=== PATIENT | female | born 1970 | race African-American/Black ===

== ENCOUNTER 2017-01-07 16:42 | Emergency (ER) | payer OTHER ==
[2017-01-07 16:58] VITALS: BMI 31.8
[2017-01-07] MEDS ORDERED: morphine CARPU-JECT 4 MG/1 ML DISP.SYRIN IVPUSH ONE (18:02)
[2017-01-07] MEDS ORDERED: SODIUM CHLORIDE 1,000 ML IV STA (18:02)
--- NOTE | 2017-01-07 18:02 | PDOC ---
[id number] a 46 year old female with no significant medical hx who is presenting to the ED with epigastric pain since last night. The patient reports noticing a hard bump sticking out of her upper abdomen with accompanying pain some time last night. The patient denies any nausea or vomiting. She does not have a history of hernias. Surgical Hx: Cholecystectomy <Lucille Lew - Last Filed: 01/07/17 18:03> <Kathy Torres - Last Filed: 01/08/17 23:39> - General Chief Complaint: Pain Stated Complaint: LUMP ON STOMACH/PAIN Time Seen by Provider: 01/07/17 17:46 Past History <Lucille Lew - Last Filed: 01/07/17 18:03> - Surgical History Abdominal Surgery: Yes (gallstones removed) Cholecystectomy: Yes - Psycho/Social/Smoking Cessation Hx Anxiety: No Suicidal Ideation: No Smoking Status: No Smoking History: Never smoked Years of Tobacco Use: 0 Number of Cigarettes Smoked Daily: 0 Cigars Per Day: 0 Information on smoking cessation initiated: No <Kathy Torres - Last Filed: 01/08/17 23:39> - Past Medical History Allergies/Adverse Reactions: Allergies Allergy/AdvReac Type Severity Reaction Status Date / Time No Known Allergies Allergy Verified 01/07/17 16:58 Home Medications: Ambulatory Orders Ferrous Sulfate 325 mg PO DAILY 01/07/17 Ibuprofen 800 mg PO TID #30 tablet 01/07/17 Oxycodone HCl/Acetaminophen [Percocet 5-325 mg Tablet] 1 - 2 tab PO Q6H #20 tablet MDD 4 01/07/17 Review of Systems - Review of Systems Comments:: 01/07/17 18:03 GENERAL/CONSTITUTIONAL: No fever or chills. No weakness. HEAD, EYES, EARS, NOSE AND THROAT: No change in vision. No ear pain or discharge. No sore throat. CARDIOVASCULAR: No chest pain or shortness of breath. RESPIRATORY: No cough, wheezing, or hemoptysis. GASTROINTESTINAL: Epigastric pain, bump located to upper abdomen. No nausea, vomiting, diarrhea or constipation. GENITOURINARY: No dysuria, frequency, or change in urination. MUSCULOSKELETAL: No joint or muscle swelling or pain. No neck or back pain. SKIN: No rash NEUROLOGIC: No headache, vertigo, loss of consciousness, or change in strength/ sensation. <Lucille Lew - Last Filed: 01/07/17 18:03> *Physical Exam - Vital Signs Last Vital Signs Temp Pulse Resp BP Pulse Ox 98.1 F 78 18 129/77 99 01/07/17 16:55 01/07/17 16:55 01/07/17 16:55 01/07/17 16:55 01/07/17 16:55 <Lucille Lew - Last Filed: 01/07/17 18:03> - Vital Signs Last Vital Signs Temp Pulse Resp BP Pulse Ox 98.1 F 78 18 129/77 99 01/07/17 16:55 01/07/17 16:55 01/07/17 16:55 01/07/17 16:55 01/07/17 16:55 - Physical Exam Comments: GENERAL: Awake, alert, and fully oriented, in no acute distress HEAD: No signs of trauma EYES: PERRLA, EOMI, sclera anicteric, conjunctiva clear ENT: Auricles normal inspection, hearing grossly normal, nares patent, oropharynx clear without exudates. Moist mucosa NECK: Normal ROM, supple, no lymphadenopathy, JVD, or masses LUNGS: Breath sounds equal, clear to auscultation bilaterally. No wheezes, and no crackles HEART: Regular rate and rhythm, normal S1 and S2, no murmurs, rubs or gallops ABDOMEN: Soft, +firm area of tenderness to the epigastrium, with mass-like protrusion, normoactive bowel sounds. No rebound. No masses EXTREMITIES: Normal range of motion, no edema. No clubbing or cyanosis. No cords, erythema, or tenderness NEUROLOGICAL: Cranial nerves II through XII grossly intact. Normal speech, normal gait SKIN: Warm, Dry, normal turgor, no rashes or lesions noted. <Kathy Torres - Last Filed: 01/08/17 23:39> ED Treatment Course - LABORATORY CBC & Chemistry Diagram: 01/07/17 18:20 01/07/17 18:20 <Kathy Torres - Last Filed: 01/08/17 23:39> Medical Decision Making - Medical Decision Making 01/07/17 19:[address] Go- presented with suspected incarcerated hernia to epigastric area since last night. Did not attempt to reduce in ED due to duration of symptoms (risk of further harm to patient). Awaiting CT for further evaluation. <Kathy Torres - Last Filed: 01/08/17 23:39> *DC/Admit/Observation/Transfer - Attestations Scribe Attestion: 01/07/17 18:04 Documentation prepared by Lucille Lew, acting as emergency medical technician/driver for Kathy Torres MD. <Lucille Lew - Last Filed: 01/07/17 18:03> <Kathy Torres - Last Filed: 01/08/17 23:39> Diagnosis at time of Disposition: Hernia of abdominal wall - Discharge Dispostion Disposition: HOME Condition at time of disposition: Stable - Prescriptions Prescriptions: Ibuprofen 800 mg PO TID #30 tablet Oxycodone HCl/Acetaminophen [Percocet 5-325 mg Tablet] 1 - 2 tab PO Q6H #20 tablet MDD 4 - Referrals Referrals: Billy Layne MD [Staff Physician] - Danilo Maurer MD [Staff Physician] - - Patient Instructions Printed Discharge Instructions: DI for Ventral Hernia Additional Instructions: Please make appointment with one of the doctors referred to you for surgical follow up. Take medication as directed. Return if any problems
[2017-01-07] MEDS ORDERED: morphine CARPU-JECT 4 MG/1 ML DISP.SYRIN ONE (18:07)
[2017-01-07 18:36] LABS: BASOPHIL 0.6 % (0-2.0); EOSINOPHIL 3.4 % (0-4.5); MCH 21.5 pg (25.7-33.7); MCHC 29.7 g/dl (32.0-36.0); MEAN CELL VOLUME 72.5 fl (80-96); MEAN PLT VOLUME 8.8 fl (7.5-11.1); NEUTROPHILS 63.5 % (42.8-82.8); PLATELET COUNT 213 K/MM3 (134-434); RDW 24.5 % (11.6-15.6); WHITE BLOOD COUNT 5.3 K/mm3 (4.0-10.0)
[2017-01-07 18:53] LABS: INR 1.11 (0.82-1.09); PROTHROMBIN TIME (PATIENT) 12.2 SEC (9.98-11.88)
[2017-01-07 18:57] LABS: ALBUMIN 4.2 g/dl (3.4-5.0); ALK PHOS 68 U/L (45-117); ANION GAP 10 (8-16); BILIRUBIN,TOTAL 0.2 mg/dL (0.2-1.0); CALCIUM 8.8 mg/dL (8.5-10.1); CO2 24 mmol/L (21-32); CREATININE 0.8 mg/dL (0.55-1.02); GLUCOSE,RANDOM 76 mg/dL (74-106); SGOT/AST 13 U/L (15-37); SGPT/ALT 27 U/L (12-78); TOT PROT 7.6 g/dl (6.4-8.2)
[2017-01-07 20:04] LABS: ANISOCYTOSIS 3+; HYPOCHROMIA 2+; OVALOCYTES 2+; PLATELET ESTIMATE ADEQUATE (NORMAL)
--- NOTE | 2017-01-07 23:06 | PDOC ---
*Physical Exam - Vital Signs Last Vital Signs Temp Pulse Resp BP Pulse Ox 98.1 F 78 18 129/77 99 01/07/17 16:55 01/07/17 16:55 01/07/17 16:55 01/07/17 16:55 01/07/17 16:55 ED Treatment Course - LABORATORY CBC & Chemistry Diagram: 01/07/17 18:20 01/07/17 18:20 - ADDITIONAL ORDERS Additional order review: Laboratory Results 01/07/17 01/07/17 01/07/17 18:20 18:20 18:20 INR Sodium 139 Potassium 3.7 Chloride 105 Carbon Dioxide 24 Anion Gap 10 BUN 15 Creatinine 0.8 Creat Clearance w eGFR > 60 Random Glucose 76 Lactic Acid 0.634 Calcium 8.8 Total Bilirubin 0.2 AST 13 L ALT 27 Alkaline Phosphatase 68 Total Protein 7.6 Albumin 4.2 Lipase 156 Blood Type AB POSITIVE Antibody Screen Negative 01/07/17 18:20 INR 1.11 Sodium Potassium Chloride Carbon Dioxide Anion Gap BUN Creatinine Creat Clearance w eGFR Random Glucose Lactic Acid Calcium Total Bilirubin AST ALT Alkaline Phosphatase Total Protein Albumin Lipase Blood Type Antibody Screen 01/07/17 18:20 RBC 4.32 MCV 72.5 L MCHC 29.7 L RDW 24.5 H MPV 8.8 Neutrophils % 63.5 Lymphocytes % 24.0 Monocytes % 8.5 Eosinophils % 3.4 Basophils % 0.6 - Medications Given in the ED: ED Medications Discontinued Medications Generic Name Dose Route Start Last Admin Trade Name Freq PRN Reason Stop Dose Admin Sodium Chloride 1,000 mls @ 1,000 mls/hr 01/07/17 18:02 01/07/17 18:25 Normal Saline - IV 01/07/17 19:01 1,000 mls/hr ASDIR STA Administration Morphine Sulfate 4 mg 01/07/17 18:02 01/07/17 18:25 Morphine Injection - IVPUSH 01/07/17 18:03 4 mg ONCE ONE Administration Medical Decision Making - Medical Decision Making 01/07/17 23:05 ct scan of abdomen/Pelvis shows a small fat containing hernial defect. No SBO. [facility] up *DC/Admit/Observation/Transfer Diagnosis at time of Disposition: Hernia of abdominal wall - Discharge Dispostion Disposition: HOME Condition at time of disposition: Stable Admit: No - Referrals Referrals: Billy Layne MD [Staff Physician] - Danilo Maurer MD [Staff Physician] - - Patient Instructions Printed Discharge Instructions: DI for Ventral Hernia Additional Instructions: Please make appointment with one of the doctors referred to you for surgical follow up. Take medication as directed. Return if any problems
[2017-01-07 23:33] VITALS: BP 135/79; PULSE 82; TEMP 98.3
== END 2017-01-07 23:27 | disposition home or self-care (01) ==
LOC: JER 16:42
PROC: 3E033NZ Introduction of Analgesics, Hypnotics, Sedatives into Peripheral Vein, Percutaneous Approach (ICD-10-PCS; principal; 2017-01-07)
DX: K43.9 Ventral hernia without obstruction or gangrene (principal)
CPT/HCPCS: 36415; 74177-TC; 80053; 83605; 83690; 85025; 85610; 86850; 86900; 86901; 96374; 99284-25; Q9967

== ENCOUNTER 2017-01-21 07:25 | Day surgery (SDC) | payer OTHER ==
[2017-01-21 07:30] VITALS: BMI 31.6
--- NOTE | 2017-01-21 08:17 | PDOC ---
History of Present Illness <William Rodgers - Last Filed: 01/21/17 10:02> - General History Source: Patient, Other (General Surgeon, Dr. Layne) Exam Limitations: No Limitations - History of Present Illness Initial Comments: 01/21/17 08:24 The patient is a 46-year-old woman, accompanied by friend, with a significant past medical history of anemia who presents to the emergency department via walk -in for pre-operative labs for scheduled hernia surgery at 12:00 this afternoon.She reports having an incisional incarcerated ventral hernia, ever since her cholecystectomy surgery. Patient has been evaluated by Dr. Layne. She reports that she has been experiencing intermittent epigastric pains for the past few months, however her pains have progressively worsen over the past week. No associate symptoms of nausea, vomiting. She states her appetite is great and has no difficulty moving her bowels and having bladder movements. No fever, chills, weakness. No chest pain, lightheadedness, dizziness, headaches, visual changes, neck pain. No cough, shortness of breath No nausea, vomiting, diarrhea, constipation No urinary symptoms. Allergies: None Known Past Surgical History: Cholecystectomy. Social History: No tobacco use. Occasional ETOH use. No recreational drug use. General Surgeon: Dr. Billy Layne <Vandana Jeter - Last Filed: 01/21/17 10:10> - General Chief Complaint: Pain Stated Complaint: ABDOMINAL PAIN Time Seen by Provider: 01/21/17 08:08 Past History - Past Medical History Anemia: Yes - Surgical History Abdominal Surgery: Yes (gallstones removed) Cholecystectomy: Yes (1996) - Psycho/Social/Smoking Cessation Hx Anxiety: No Suicidal Ideation: No Smoking Status: No Smoking History: Never smoked Years of Tobacco Use: 0 Number of Cigarettes Smoked Daily: 0 Cigars Per Day: 0 Information on smoking cessation initiated: No Hx Alcohol Use: Yes () Drug/Substance Use Hx: No Substance Use Type: Alcohol Hx Substance Use Treatment: No <William Rodgers - Last Filed: 01/21/17 10:02> <Vandana Jeter - Last Filed: 01/21/17 10:10> - Past Medical History Allergies/Adverse Reactions: Allergies Allergy/AdvReac Type Severity Reaction Status Date / Time No Known Allergies Allergy Verified 01/21/17 07:30 Home Medications: Ambulatory Orders Ferrous Sulfate 325 mg PO DAILY 01/07/17 Review of Systems - Review of Systems Constitutional: No: Chills, Fever Respiratory: No: Cough, Shortness of Breath Cardiac (ROS): No: Chest Pain ABD/GI: Yes: See HPI. No: Constipated, Nausea, Vomiting : No: Dysuria All Other Systems: Reviewed and Negative <William Rodgers - Last Filed: 01/21/17 10:02> *Physical Exam - Vital Signs Last Vital Signs Temp Pulse Resp BP Pulse Ox 97.9 F 95 H 18 123/81 98 01/21/17 07:27 01/21/17 07:27 01/21/17 07:27 01/21/17 07:27 01/21/17 07:27 <William Rodgers - Last Filed: 01/21/17 10:02> - Vital Signs Last Vital Signs Temp Pulse Resp BP Pulse Ox 97.9 F 95 H 18 123/81 98 01/21/17 07:27 01/21/17 07:27 01/21/17 07:27 01/21/17 07:27 01/21/17 07:27 - Physical Exam Comments: 01/21/17 08:30 GENERAL: The patient is awake, alert, and fully oriented, in no acute distress. HEAD: Normal with no signs of trauma. EYES: Pupils equal, round and reactive to light, extraocular movements intact, sclera anicteric, conjunctiva clear with no pallor. ENT: Ears normal, nares patent, oropharynx clear without exudates. Moist mucous membranes. NECK: Normal range of motion, supple without lymphadenopathy, JVD, or masses. LUNGS: Breath sounds equal, clear to auscultation bilaterally. No wheeze/ crackles. HEART: Regular rate and rhythm, normal S1 and S2 without murmur or rub. ABDOMEN: Soft. there is a non-reducible incarcerated ventral hernia that is about 5cm Nondistended. BS wnl. No rebound. No palpable masses. No hepatosplenomegaly. EXTREMITIES: Normal range of motion, no edema. No clubbing or cyanosis. No cords,erythema, or tenderness. NEUROLOGICAL: Cranial nerves II through XII grossly intact. Normal speech. PSYCH: Normal mood, normal affect. SKIN: Warm, Dry, normal turgor, no rashes or lesions noted. <Vandana Jeter - Last Filed: 01/21/17 10:10> ED Treatment Course - LABORATORY CBC & Chemistry Diagram: 01/21/17 09:00 01/21/17 09:00 <William Rodgers - Last Filed: 01/21/17 10:02> - LABORATORY CBC & Chemistry Diagram: 01/21/17 09:00 01/21/17 09:00 <Vandana Jeter - Last Filed: 01/21/17 10:10> Medical Decision Making - Medical Decision Making 01/21/17 08:14 A portion of this note was documented by scribe services under my direction. I have reviewed the details of the note, within reason, and agree with the documentation with the following case summary and management plan written by me. 46-year-old female with history of intermittent ventral hernia pain now with 1 week of persistent pain, no obstructive symptoms. Has been evaluated by general surgery and requires intervention for incarcerated hernia. Afebrile. Incarcerated ventral hernia in the epigastric region, remainder the abdomen is soft and nondistended. 46-year-old female here with incarcerated ventral hernia, requires operative intervention. Labs, serum Will admit to Dr. Layne of Gen. surgery for OR intervention today. 01/21/17 10:03 Chemistries wnl but CBC notable for Hgb 7.6. D/W admitting surgery team. <William Rodgers - Last Filed: 01/21/17 10:02> - Medical Decision Making 01/21/17 08:38 Dr. Layne arrived to the ED. Currently evaluating the patient. 01/21/17 10:09 [employer] Surgical PA, Andrew Day regarding patient's hgb. <Vandana Jeter - Last Filed: 01/21/17 10:10> *DC/Admit/Observation/Transfer - Discharge Dispostion Admit: Yes <William Rodgers - Last Filed: 01/21/17 10:02> - Attestations Scribe Attestion: 01/21/17 08:30 Documentation prepared by Vandana Jeter, acting as medical imaging technologist for William Rodgers MD.. <Vandana Jeter - Last Filed: 01/21/17 10:10> Diagnosis at time of Disposition: Incarcerated hernia
[2017-01-21 09:12] LABS: BASOPHIL 1.4 % (0-2.0); EOSINOPHIL 5.3 % (0-4.5); MCHC 29.6 g/dl (32.0-36.0); MEAN CELL VOLUME 71.2 fl (80-96); MEAN PLT VOLUME 8.1 fl (7.5-11.1); NEUTROPHILS 61.2 % (42.8-82.8); PLATELET COUNT 369 K/MM3 (134-434); RDW 23.6 % (11.6-15.6); WHITE BLOOD COUNT 4.9 K/mm3 (4.0-10.0)
[2017-01-21 09:25] LABS: INR 1.07 (0.82-1.09); PROTHROMBIN TIME (PATIENT) 11.8 SEC (9.98-11.88)
[2017-01-21 09:35] LABS: ALBUMIN 3.5 g/dl (3.4-5.0); ANION GAP 8 (8-16); BILIRUBIN,TOTAL 0.2 mg/dL (0.2-1.0); CALCIUM 8.6 mg/dL (8.5-10.1); CO2 27 mmol/L (21-32); CREATININE 0.8 mg/dL (0.55-1.02); GLUCOSE,RANDOM 91 mg/dL (74-106); SGOT/AST 12 U/L (15-37); SGPT/ALT 23 U/L (12-78); TOT PROT 6.9 g/dl (6.4-8.2)
[2017-01-21 09:36] LABS: ALK PHOS 64 U/L (45-117)
[2017-01-21] MEDS ORDERED: PROPOFOL 20 ML ONE ×2 (09:38→09:39)
[2017-01-21] MEDS ORDERED: SUCCINYLCHOLINE CHLORIDE 200 MG/10 ML VIAL ONE (09:38)
[2017-01-21] MEDS ORDERED: MIDAZOLAM HCL 2 MG/2 ML SINGLE DOSE VIAL ONE ×3 (09:39)
[2017-01-21] MEDS ORDERED: ROCURONIUM BROMIDE 50 MG/5 ML VIAL ONE (09:39)
[2017-01-21] MEDS ORDERED: LIDOCAINE HCL 2% (20ML MULTI-DOSE VIAL) NR ONE (09:42)
--- NOTE | 2017-01-21 09:47 | HP ---
Admitting History and Physical - Admission Chief Complaint: Epigastric pain History of Present Illness: The patient is a 46 yo female with h/o cholecystectomy. Pt has c/o of discomfort to her epigastric surgical port site since having her gallbladder removed. C/o intermittent epigastric pains for the past few months, however her pains have progressively worsen over the past week. She states she is tolerating a regular diet. Passing flatus. Having normal bowel movements. Denies n/v/f/c, CP or SOB. History Source: Patient Limitations to Obtaining History: No Limitations - Past Medical History ...LMP: 01/03/17 ...: No Heme/Onc: Yes: Anemia - Past Surgical History Past Surgical History: Yes: Cholecystectomy - Smoking History Smoking history: Never smoked Aproximately how many cigarettes per day: 0 - Alcohol/Substance Use Hx Alcohol Use: Yes (OCCAS) - Social History ADL: Independent History of Recent Travel: No Home Medications - Allergies Allergies/Adverse Reactions: Allergies Allergy/AdvReac Type Severity Reaction Status Date / Time No Known Allergies Allergy Verified 01/21/17 07:30 - Home Medications Home Medications: Ambulatory Orders Ferrous Sulfate 325 mg PO DAILY 01/07/17 Ibuprofen 800 mg PO TID #30 tablet 01/07/17 Oxycodone HCl/Acetaminophen [Percocet 5-325 mg Tablet] 1 - 2 tab PO Q6H #20 tablet MDD 4 01/07/17 Review of Systems - Review of Systems Constitutional: reports: No Symptoms Eyes: reports: No Symptoms HENT: reports: No Symptoms Neck: reports: No Symptoms Cardiovascular: reports: No Symptoms Respiratory: reports: No Symptoms Gastrointestinal: reports: Abdominal Pain Genitourinary: reports: No Symptoms Breasts: reports: No Symptoms Reported Integumentary: reports: No Symptoms Neurological: reports: No Symptoms Endocrine: reports: No Symptoms Hematology/Lymphatic: reports: No Symptoms Psychiatric: reports: No Symptoms Physical Examination Vital Signs: Vital Signs Temperature 97.9 F 01/21/17 07:27 Pulse Rate 95 H 01/21/17 07:27 Respiratory Rate 18 01/21/17 07:27 Blood Pressure 123/81 01/21/17 07:27 O2 Sat by Pulse Oximetry (%) 99 01/21/17 09:26 Constitutional: Yes: Well Nourished, No Distress, Calm Eyes: Yes: WNL, Conjunctiva Clear, EOM Intact HENT: Yes: WNL, Atraumatic, Normocephalic Neck: Yes: WNL, Supple, Trachea Midline Cardiovascular: Yes: WNL, Regular Rate and Rhythm Respiratory: Yes: WNL, Regular, CTA Bilaterally Gastrointestinal: Yes: Normal Bowel Sounds, Soft, Hernia (Incarcerated incisional hernia (epigastric port site)), Tenderness, Epigastrium ...Rectal Exam: Yes: Deferred Renal/: Yes: WNL Musculoskeletal: Yes: WNL Extremities: Yes: WNL Edema: No Peripheral Pulses WNL: Yes Integumentary: Yes: WNL Neurological: Yes: WNL, Alert, Oriented ...Motor Strength: WNL Psychiatric: Yes: WNL, Alert, Oriented Labs: CBC, BMP 01/21/17 09:00 Problem List - Problems (1) Incarcerated hernia Assessment/Plan: NPO IVF GI/DVT ppx Type and screen Coags Urine HCG Surgical consent and Anesthesia consent both signed and in her paper chart Code(s): K46.0 - UNSP ABDOMINAL HERNIA WITH OBSTRUCTION, WITHOUT GANGRENE
[2017-01-21] MEDS ORDERED: ceFAZolin SODIUM 1 GM VIAL ONE (10:39)
[2017-01-21] MEDS ORDERED: ceFAZolin SODIUM 1 GM VIAL IVPB ONE (10:40)
[2017-01-21] MEDS ORDERED: LIDOCAINE HCL 1%, 10 MG/ML (20ML VIAL) IJ ONE (10:54)
[2017-01-21] MEDS ORDERED: BUPIVACAINE HCL/PF 0.5% (5MG/ML) 10 ML VIAL IJ ONE (10:55)
[2017-01-21] MEDS ORDERED: DEXAMETHASONE SOD PHOSPHATE 4 MG/1 ML VIAL ONE (10:56)
[2017-01-21] MEDS ORDERED: KETOROLAC TROMETHAMINE 30 MG/1 ML VIAL ONE (11:14)
[2017-01-21] MEDS ORDERED: NEOSTIGMINE METHYLSULFATE 0.5 MG/ML - 10 ML MDV ONE (11:15)
--- NOTE | 2017-01-21 11:47 | OP ---
Operative Note - Note: Operative Date: 01/21/17 Pre-Operative Diagnosis: Incarcerated ventral hernia Operation: Open repair of incarcerated ventral hernia Findings: Incarcerated omentum Post-Operative Diagnosis: Same as Pre-op Surgeon: Billy Layne Brimmer Blocker: Andrew Day Anesthesiologist/DATA REPORTING ANALYST: Megan Crabtree Anesthesia: General Specimens Removed: incarerated omentuma and sac Estimated Blood Loss (mls): 5 Fluid Volume Replaced (mls): 700 Operative Report Dictated: Yes
--- NOTE | 2017-01-21 11:48 | SURG ---
Surgery [employer] Note [employer]: Andrew Day PA-C Date of Service: 01/21/17 Diagnosis: Incarcerated ventral hernia Procedure: Open repair ventral hernia with primary closure I was present for the entirety of the operative procedure. For further detail, please refer to operative report. Visit type - Case Type Case Type: ED Admission - Emergency Emergency Visit: Yes Care time: The patient presented to the Emergency Department on the above date and was hospitalized for further evaluation of their emergent condition. - New patient This patient is new to me today: Yes Date on this admission: 01/21/17
[2017-01-21] MEDS ORDERED: ONDANSETRON 4 MG/2 ML VIAL IVPUSH PRN (11:49)
[2017-01-21] MEDS ORDERED: oxyCODONE HCL 5 MG TABLET PO PRN (11:49)
[2017-01-21] MEDS ORDERED: ACETAMINOPHEN 1000 MG/100 ML VIAL (NON FORMULARY) IVPB ONE (11:54)
[2017-01-21] MEDS ORDERED: LIDOCAINE HCL 1%, 10 MG/ML (20ML VIAL) ONE (11:56)
[2017-01-21] MEDS ORDERED: BUPIVACAINE HCL/PF 0.5% (5MG/ML) 10 ML VIAL ONE (11:56)
[2017-01-21] MEDS ORDERED: LACTATED RINGERS SOLUTION 1,000 ML IV SCH (12:00)
[2017-01-21 14:31] LABS: HYPOCHROMIA 2+; MICROCYTOSIS 1+
[2017-01-21 14:32] LABS: ANISOCYTOSIS 3+; TARGET CELLS 2+
[2017-01-21 14:33] VITALS: TEMP 98.4
[2017-01-21] MEDS ORDERED: oxyCODONE HCL 5 MG TABLET ONE ×3 (15:12→15:56)
[2017-01-21 17:16] VITALS: BP 118/67; PULSE 65
--- NOTE | 2017-01-22 13:14 | PATH ---
Surgical Pathology Report Patient Name: FREDY ADAME [facility]. Rec. #: [id number] /Age/Gender: 1970 (Age: 46) / F Account: [id number] Location: AMBULATORY SURG Taken: 01/21/2017 Received: 01/21/2017 Reported: 01/22/2017 Physicians: Billy Layne MD Specimen(s) Received HERNIA SAC Clinical History Incarcerated hernia Final Diagnosis HERNIA SAC, OPEN INCARCERATED VENTRAL HERNIA REPAIR: BENIGN FIBROMEMBRANOUS AND FIBROADIPOSE TISSUE WITH FAT NECROSIS, VASCULAR CONGESTION AND FOCAL HEMORRHAGE CONSISTENET WITH HERNIA SAC. Electronically Signed Elías Dominguez M.D. Gross Description Received in formalin labeled "hernia sac" is an 8.5 x 3.3 x 1.5 cm irregular portion of lieberman fibromembranous tissue with attached fat, consistent with a portion of hernia sac. [employer] sections are submitted in one cassette. /01/21/2017 formerly [facility]01/21/2017
--- NOTE | 2017-01-22 20:00 | OP ---
DATE OF OPERATION: 01/21/2017 PREOPERATIVE DIAGNOSIS: Incarcerated ventral hernia. POSTOPERATIVE DIAGNOSIS: Incarcerated ventral hernia. PROCEDURE: Repair of incarcerated ventral hernia. SURGEON: Billy Layne M.D. LOG PROCESSOR OPERATOR: Isrrael Braswell ANESTHESIA: General. OPERATIVE FINDINGS: There was an incarcerated ventral hernia containing incarcerated preperitoneal fat. The defect at the hernia was approximately 2 cm. The rest of the findings were unremarkable. PROCEDURE: The patient was placed on the operating table in supine position. After the induction of general anesthesia, patient's abdomen was prepped with ChloraPrep and draped in sterile fashion. A timeout was taken, and the incision mapped out over the incarcerated hernia just several centimeters below the xiphoid process. The area was infiltrated with 1% Xylocaine and 0.5% Marcaine, and an incision was made with the scalpel and taken down through skin and subcutaneous tissue. The hernia sac was bluntly dissected from the surrounding tissue, and then the sac opened and the previously noted findings were observed. Incarcerated omentum was excised using electrocautery and sent for pathological examination. The hernia defect was then clearly defined, and free omentum was noted without attachment to the underlying abdominal wall. Hernia repair was then carried out after the fascia was infiltrated with 1% lidocaine, 0.5% Marcaine in equal concentration using 0 TiCron horizontal mattress sutures. Hemostasis was checked and noted to be good, and then the wound was copiously irrigated with sterile saline. The incision was closed in layers with interrupted 2-0 Vicryl to obliterate the space of the hernia sac, interrupted 3-0 Vicryl for the deep dermis, and 4-0 Biosyn in subcuticular continuous fashion to reapproximate the skin edges. Steri-Strips, fluff, and dry sterile dressing was placed. The procedure terminated at this point. The patient aroused from general anesthesia and transferred to the post-anesthesia care unit in stable condition, awake and alert. Estimated blood loss 5 mL. Replacements crystalloid. Drains none. Specimens incarcerated preperitoneal fat to pathology. I, Billy Layne, was physically present in the operating room from the time the patient was placed on the operating room table until she was transferred to the postanesthesia care unit in [facility]. MD DEONNA Taveras/[id number]
== END 2017-01-21 16:37 | disposition home or self-care (01) ==
LOC: JER 07:25 → JASUSAT 08:17
PROVIDERS: ATTEND Surgery
PROC: 0WQF0ZZ Repair Abdominal Wall, Open Approach (ICD-10-PCS; principal; 2017-01-21 12:00)
DX: K43.6 Other and unspecified ventral hernia with obstruction, without gangrene (principal)
CPT/HCPCS: 36415; 80053; 84703; 85025; 85610; 86850; 86900; 86901; 88302-TC; 94760; 99283-25

== ENCOUNTER 2017-10-25 16:37 | Emergency (ER) | payer OTHER ==
[2017-10-25 17:20] VITALS: TEMP 98.7; BMI 31.8
--- NOTE | 2017-10-25 17:21 | PDOC ---
Rapid Medical Evaluation Time Seen by Provider: 10/25/17 17:16 Medical Evaluation: Allergies Allergy/AdvReac Type Severity Reaction Status Date / Time No Known Allergies Allergy Verified 01/21/17 07:30 10/25/17 17:16 I have performed a brief in-person evaluation of this patient. The patient presents with a chief complaint of: SOB x several weeks, no cp, diaphoresis, n/v. Also c/o PERALTA this am which is not new for pt. No body aches, f/ c Pertinent physical exam findings:Stable w/ exam only remarkable for hoarseness I have ordered the following:cxr/ekg/labs The patient will proceed to the ED for further evaluation. 10/25/17 17:21
[2017-10-25 17:40] LABS: EOS % 4.2 % (0-4.5); HEMATOCRIT 26.8 % (32.4-45.2); HEMOGLOBIN 8.1 GM/dL (10.7-15.3); LYMPH % 19.2 % (8-40); MCH 21.1 pg (25.7-33.7); MCHC 30.2 g/dl (32.0-36.0); MEAN CELL VOLUME 69.8 fl (80-96); MONO % 9.7 % (3.8-10.2); NEUT % 65.9 % (42.8-82.8); PLATELET COUNT 262 K/MM3 (134-434); RBC 3.84 M/mm3 (3.60-5.2); RDW 19.5 % (11.6-15.6); WHITE BLOOD COUNT 5.8 K/mm3 (4.0-10.0)
[2017-10-25 17:48] LABS: ADD RBC MORPHOLOGY YES
[2017-10-25 18:16] LABS: ANISOCYTOSIS 1+
[2017-10-25 18:17] LABS: OVALOCYTE 2+; TARGET CELLS 2+; TEAR DROP CELLS 1+
[2017-10-25] MEDS ORDERED: KETOROLAC TROMETHAMINE 30 MG/1 ML VIAL IVPUSH ONE (18:19)
[2017-10-25] MEDS ORDERED: SODIUM CHLORIDE 0.9% 1000 ML INFUS.BAG IV ONE (18:20)
--- NOTE | 2017-10-25 18:24 | PDOC ---
History of Present Illness - General Chief Complaint: Pain Stated Complaint: PAIN Time Seen by Provider: 10/25/17 17:16 - History of Present Illness Initial Comments: 10/25/17 18:23 Patient is a 47 y.o. female with a PMH of anemia who presents to our ED today c/ o acute onset of R sided, frontal lobe constant 10/10 headache with no associated visual changes, AMS, nausea/vomiting however patient does endorse some photophobia. Patient states she has been having these headaches for 1 month- multiple times weekly, however today the pain was particularly severe prompting her visit to the ED today. Patient also note intermittent dyspnea for the past month with no association to exertion and no identifiable triggering/relieving factors. Past History - Past Medical History Allergies/Adverse Reactions: Allergies Allergy/AdvReac Type Severity Reaction Status Date / Time No Known Allergies Allergy Verified 10/25/17 17:21 Home Medications: Ambulatory Orders NK [No Known Home Medication] 10/25/17 Anemia: Yes COPD: No - Surgical History Abdominal Surgery: Yes (gallstones removed) Cholecystectomy: Yes (1996) - Suicide/Smoking/Psychosocial Hx Smoking Status: No Smoking History: Never smoked Years of Tobacco Use: 0 Have you smoked in the past 12 months: No Number of Cigarettes Smoked Daily: 0 Cigars Per Day: 0 Information on smoking cessation initiated: No Hx Alcohol Use: No Drug/Substance Use Hx: No Substance Use Type: Alcohol Hx Substance Use Treatment: No Review of Systems - Review of Systems Constitutional: No: Chills, Fever HEENTM: No: Blurred Vision, Double Vision Respiratory: Yes: Shortness of Breath Cardiac (ROS): No: Chest Pain ABD/GI: No: Constipated, Diarrhea, Nausea, Vomiting : No: Burning, Dysuria *Physical Exam - Vital Signs Last Vital Signs Temp Pulse Resp BP Pulse Ox 98.7 F 91 H 18 142/81 100 10/25/17 17:17 10/25/17 17:17 10/25/17 17:17 10/25/17 17:17 10/25/17 17:17 - Physical Exam General Appearance: Yes: Nourished, Appropriately Dressed HEENT: positive: EOMI, DEBBIE. negative: TM Bulging, TM Dull, TM Erythema Neck: positive: Trachea midline, Supple Respiratory/Chest: positive: Lungs Clear Cardiovascular: positive: S1, S2, Murmur. negative: Edema, JVD Gastrointestinal/Abdominal: positive: Normal Bowel Sounds, Soft Extremity: positive: Normal Capillary Refill, Normal Inspection Integumentary: positive: Normal Color, Dry, Warm Neurologic: positive: director of ancillary services II-XII NML intact, Fully Oriented, Alert ED Treatment Course - LABORATORY CBC & Chemistry Diagram: 10/25/17 17:27 10/25/17 17:27 - ADDITIONAL ORDERS Additional order review: 10/25/17 17:27 RBC 3.84 MCV 69.8 L MCHC 30.2 L RDW 19.5 H D MPV 8.0 Neutrophils % 65.9 Lymphocytes % 19.2 Monocytes % 9.7 Eosinophils % 4.2 Basophils % 1.0 Medical Decision Making - Medical Decision Making 10/25/17 19:38 Patient is a 47 y.o. female who presents with headache and dyspnea. On PE patient is hemodynamically stable and saturating 100% on RA. Lungs CLTA B/L. Low clinical suspicion for ACS as well as acute intracranial pathology. Will send Troponin, CBC/CMP. EKG pending. Headache cocktail + IV NS. Patient to be signed out to Drs. Ramos (Resident) and Mega (Attending). Likely disposition is home with referral to resident clinic for primary care. *DC/Admit/Observation/Transfer Diagnosis at time of Disposition: Headache - Referrals Referrals: Berhane Villa MD [Staff Physician] - - Patient Instructions Additional Instructions: Please make an appointment with Dr. Allne Last to establish primary care. - Post Discharge Activity
[2017-10-25] MEDS ORDERED: KETOROLAC TROMETHAMINE 30 MG/1 ML VIAL ONE (18:29)
[2017-10-25 18:34] LABS: ALBUMIN 3.4 g/dl (3.4-5.0); ANION GAP 6 (8-16); BLOOD UREA NITROGEN 13 mg/dL (7-18); CALCIUM 8.1 mg/dL (8.5-10.1); CHLORIDE 107 mmol/L (98-107); CO2 27 mmol/L (21-32); GLUCOSE,RANDOM 95 mg/dL (74-106); POTASSIUM 3.9 mmol/L (3.5-5.1); SODIUM 140 mmol/L (136-145)
[2017-10-25 18:37] LABS: ALK PHOS 74 U/L (45-117); BILIRUBIN,TOTAL 0.2 mg/dL (0.2-1.0); CREATININE 0.7 mg/dL (0.55-1.02); SGOT/AST 19 U/L (15-37); SGPT/ALT 22 U/L (12-78); TOT PROT 6.9 g/dl (6.4-8.2)
--- NOTE | 2017-10-25 18:55 | PDOC ---
Attending Attestation - Resident Resident Name: Lucy Shelton - HPI HPI: 10/26/17 19:01 Pt presents to the ED wuth multiple complaints, all of which have been present for more than a month. On repeated questioning, it seems that the complain that concerns her most is persistent, diffuse frontal headache. - Physicial Exam PE: 10/26/17 19:02 Agree with resident exam. PAtient is in no acute distress and neurologically intact. - Medical Decision Making 10/26/17 19:03 Pt presents to the ED complaining of diffuse frontal headache and intermittent shortness of breth that have been present for one month. Will check basic labs and CXR, check CXR, refer to medical clinic for primary care follow up.
[2017-10-25 21:14] VITALS: BP 131/81; PULSE 85
--- NOTE | 2017-10-25 21:29 | PDOC ---
*Physical Exam - Vital Signs Last Vital Signs Temp Pulse Resp BP Pulse Ox 98.7 F 84 18 143/89 98 10/25/17 20:32 10/25/17 20:32 10/25/17 20:32 10/25/17 20:32 10/25/17 20:32 10/25/17 21:[address] Shelton at the beginning of my shift. 47F h/o anemia p/w right sided PERALTA similar to priors over the past month (2-3/wk) without red flag symptoms. ED Treatment Course - LABORATORY CBC & Chemistry Diagram: 10/25/17 17:27 10/25/17 17:27 - ADDITIONAL ORDERS Additional order review: Laboratory Results 10/25/17 10/25/17 10/25/17 18:25 18:25 17:27 Sodium 140 Potassium 3.9 Chloride 107 Carbon Dioxide 27 Anion Gap 6 L BUN 13 Creatinine 0.7 Creat Clearance w eGFR > 60 Random Glucose 95 Calcium 8.1 L Total Bilirubin 0.2 AST 19 ALT 22 Alkaline Phosphatase 74 Creatine Kinase 193 H Troponin I < 0.02 Total Protein 6.9 Albumin 3.4 Serum , Qual Negative 10/25/17 17:27 RBC 3.84 MCV 69.8 L MCHC 30.2 L RDW 19.5 H D MPV 8.0 Neutrophils % 65.9 Lymphocytes % 19.2 Monocytes % 9.7 Eosinophils % 4.2 Basophils % 1.0 - Medications Given in the ED: ED Medications Discontinued Medications Generic Name Dose Route Start Last Admin Trade Name Freq PRN Reason Stop Dose Admin Ketorolac Tromethamine 30 mg 10/25/17 18:19 10/25/17 18:32 Toradol Injection - IVPUSH 10/25/17 18:20 30 mg ONCE ONE Administration Sodium Chloride 1,000 ml 10/25/17 18:20 10/25/17 18:32 Normal Saline - IV 10/25/17 18:21 1,000 ml ONCE ONE Administration Medical Decision Making - Medical Decision Making 10/25/17 21:45 Patient's care assumed from Dr. Shelton at the beginning of my shift. Patient with continued right PERALTA and right eye pain, believes right eyelid is swollen. Head CT wo contrast and ESR ordered. *DC/Admit/Observation/Transfer Diagnosis at time of Disposition: Headache Qualifiers: Headache type: unspecified Headache chronicity pattern: acute headache Intractability: not intractable Qualified Code(s): R51 - Headache - Discharge Dispostion Disposition: HOME Condition at time of disposition: Stable Admit: No - Referrals Referrals: Berhane Villa MD [Staff Physician] - - Patient Instructions Printed Discharge Instructions: DI for Headache Additional Instructions: You were seen in the ER for a headache. We did lab tests, a head CT, and a chest x-ray and the results were not concerning. Please make an appointment with Dr. Allen Last to establish primary care. Return to the ER for any new or worsening symptoms. - Post Discharge Activity
--- NOTE | 2017-10-28 21:52 | EKG ---
Test Reason : Blood Pressure : / mmHG Vent. Rate : 084 BPM Atrial Rate : 084 BPM P-R Int : 182 ms QRS Dur : 072 ms QT Int : 382 ms P-R-T Axes : 074 000 053 degrees QTc Int : 451 ms NORMAL SINUS RHYTHM NORMAL ECG NO PREVIOUS ECGS AVAILABLE Confirmed by FERNANDEZ DALTON MD ([id number]) on 10/28/2017 9:51:50 PM Referred By: Confirmed By:FERNANDEZ DALTON MD
== END 2017-10-25 23:29 | disposition home or self-care (01) ==
LOC: JER 16:37
PROC: 3E0333Z Introduction of Anti-inflammatory into Peripheral Vein, Percutaneous Approach (ICD-10-PCS; principal; 2017-10-25)
DX: R51 Headache (principal)
CPT/HCPCS: 36415; 70450-TC; 71046-TC; 80053; 82550; 82553; 84484; 84703; 85025; 85651; 93005; 93010; 96374; 99284-25

== ENCOUNTER 2018-01-30 19:51 | Observation (INO) | payer OTHER | END 2018-01-31 18:18 | disposition home or self-care (01) | LOC: JER 19:51 → JERBED 22:08 → J5S 01-31 10:19 | PROVIDERS: ADMIT Internal Medicine | PROC: 30233N1 Transfusion of Nonautologous Red Blood Cells into Peripheral Vein, Percutaneous Approach (ICD-10-PCS; principal; 2018-01-30) | CPT/HCPCS: 36415; 36430; 71045-TC-FY; 76830-TC; 76856-TC; 80048; 80053; 82550; 82553; 82728; 83540; 83550; 83735; 84100; 84484; 85025; 85610; 85730; 86850; 86900; 86901; 86922; 93005; 93010; 99285-25; G0378; P9038; P9058 ==

== ENCOUNTER 2019-09-27 15:52 | Emergency (ER) | payer SELFPAY ==
[2019-09-27 16:09] VITALS: BP 185/99; PULSE 77; TEMP 97.8; BMI 33.6
[2019-09-27] MEDS ORDERED: SILVER NITRATE 75% APPLIC STCK 1 PKT EACH ONE (16:19)
[2019-09-27] MEDS ORDERED: LIDOCAINE 1%/EPI 1:100000 (20 ML MULTI DOSE VIAL) ONE (16:25)
--- NOTE | 2019-09-27 16:39 | PDOC ---
History of Present Illness - General Chief Complaint: Injury Stated Complaint: ANKLE PAIN Time Seen by Provider: 09/27/19 16:08 - History of Present Illness Initial Comments: 09/27/19 16:37 49-year-old female with cerebrovascular and coronary artery disease presents for evaluation of a bleeding varicosity in her left ankle which occurred just prior to arrival. Bleeding was controlled with direct pressure. Past History - Past Medical History Allergies/Adverse Reactions: Allergies Allergy/AdvReac Type Severity Reaction Status Date / Time No Known Allergies Allergy Verified 01/30/18 20:01 Home Medications: Ambulatory Orders Ferrous Sulfate [Feosol] 325 mg PO DAILY 01/31/18 Anemia: Yes Asthma: No Cancer: No Cardiac Disorders: No CVA: No COPD: No CHF: No Dementia: No Diabetes: No GI Disorders: No Disorders: No HTN: No Hypercholesterolemia: No Liver Disease: No Seizures: No Thyroid Disease: No Other medical history: ANEURYSM BRAIN - Surgical History Abdominal Surgery: Yes (gallstones removed) Appendectomy: No Cardiac Surgery: No Cholecystectomy: Yes (1996) Lung Surgery: No Neurologic Surgery: No Orthopedic Surgery: No - Immunization History Immunization Up to Date: Yes - Psycho Social/Smoking Cessation Hx Smoking Status: No Smoking History: Never smoked Years of Tobacco Use: 0 Have you smoked in the past 12 months: No Number of Cigarettes Smoked Daily: 0 Cigars Per Day: 0 Hx Alcohol Use: No Drug/Substance Use Hx: No Substance Use Type: Alcohol Hx Substance Use Treatment: No Review of Systems - Review of Systems Constitutional: Yes: See HPI *Physical Exam - Vital Signs Last Vital Signs Temp Pulse Resp BP Pulse Ox 97.8 F 77 17 185/99 H 100 09/27/19 16:05 09/27/19 16:05 09/27/19 16:05 09/27/19 16:05 09/27/19 16:05 - Physical Exam 09/27/19 16:37 There is a superficial bleeding varicosity at the lateral aspect of the left ankle. No gross sensorimotor deficits Medical Decision Making - Medical Decision Making 09/27/19 16:37 Silver nitrate was applied however this did not help with hemostasis. 10 cc of 1% lidocaine with epinephrine was injected into the area which slowed the bleeding down. A single interrupted 3-0 nylon suture was placed which halted bleeding. A dry sterile dressing was placed. Vascular surgery consult was given to patient to follow-up in 2 to 3 days Discharge - Discharge Information Problems reviewed: Yes Clinical Impression/Diagnosis: Bleeding from varicose vein Condition: Stable Disposition: HOME - Admission No - Follow up/Referral Referrals: Popeye Mcmanus MD [Non Staff, Medical] - Sonu Hampton MD [Staff Physician] - Rajan Grove MD [Staff Physician] - Rajan Chapa MD [Non Staff, Medical] - Jeffery Love MD [Staff Physician] - - Patient Discharge Instructions Additional Instructions: Return to the emergency room for further issues. Without fail please follow-up with vascular surgery in 2 to 3 days for further evaluation and treatment options. Continue with your regular medication. Keep the bandage on for the next 2 days after 2 days you may remove the bandage and wash the area gently with soap and water. The sutures should come out in 10 days. Again follow-up with vascular surgery without fail in 2 to 3 days for further evaluation and treatment options. - Post Discharge Activity
== END 2019-09-27 16:49 | disposition home or self-care (01) ==
LOC: JERFT 15:52
PROC: 0HQLXZZ Repair Left Lower Leg Skin, External Approach (ICD-10-PCS; principal; 2019-09-27)
DX: I83.892 Varicose veins of left lower extremity with other complications (principal); I25.10 Atherosclerotic heart disease of native coronary artery without angina pectoris; Z86.79 Personal history of other diseases of the circulatory system; Z90.49 Acquired absence of other specified parts of digestive tract
CPT/HCPCS: 99281-25

== ENCOUNTER 2019-10-06 09:29 | Emergency (ER) | payer OTHER ==
[2019-10-06 09:41] VITALS: BP 127/89; PULSE 79; TEMP 98.5; BMI 34.0
--- NOTE | 2019-10-06 11:21 | PDOC ---
History of Present Illness - General Chief Complaint: Wound Stated Complaint: WOUND INFECTED Time Seen by Provider: 10/06/19 10:33 History Source: Patient Exam Limitations: No Limitations Past History - Travel Traveled outside of the country in the last 30 days: No Close contact w/someone who was outside of country & ill: No - Past Medical History Allergies/Adverse Reactions: Allergies Allergy/AdvReac Type Severity Reaction Status Date / Time No Known Allergies Allergy Verified 10/06/19 09:37 Home Medications: Ambulatory Orders Ferrous Sulfate [Feosol] 325 mg PO DAILY 01/31/18 Cephalexin Monohydrate [Keflex -] 500 mg PO BID #14 capsule 10/06/19 Sulfamethoxazole/Trimethoprim [Bactrim Ds -] 1 tab PO BID #14 tablet 10/06/19 Anemia: Yes Asthma: No Cancer: No Cardiac Disorders: No CVA: No COPD: No CHF: No Dementia: No Diabetes: No GI Disorders: No Disorders: No HTN: No Hypercholesterolemia: No Liver Disease: No Seizures: No Thyroid Disease: No - Surgical History Abdominal Surgery: Yes (gallstones removed) Appendectomy: No Cardiac Surgery: No Cholecystectomy: Yes (1996) Lung Surgery: No Neurologic Surgery: No Orthopedic Surgery: No - Immunization History Immunization Up to Date: Yes - Psycho Social/Smoking Cessation Hx Smoking Status: No Smoking History: Never smoked Years of Tobacco Use: 0 Have you smoked in the past 12 months: No Number of Cigarettes Smoked Daily: 0 Cigars Per Day: 0 Information on smoking cessation initiated: No Hx Alcohol Use: No Drug/Substance Use Hx: No Substance Use Type: Alcohol Hx Substance Use Treatment: No Review of Systems - Review of Systems Able to Perform ROS?: Yes Comments:: 10/06/19 13:37 CONSTITUTIONAL: Absent: fever, chills, diaphoresis, generalized weakness, malaise, loss of appetite HEENT: Absent: rhinorrhea, nasal congestion, throat pain, throat swelling, difficulty swallowing, mouth swelling, ear pain, eye pain, visual Changes MUSCULOSKELETAL: Absent: myalgia, arthralgia, joint swelling SKIN: Present: b/l wounds to the ankle Absent: rash, itching, pallor NEUROLOGIC: Absent: headache, focal weakness or paresthesias, dizziness, unsteady gait, seizure, mental status changes, bladder or bowel incontinence PSYCHIATRIC: Absent: anxiety, depression, suicidal or homicidal ideation, hallucinations. Is the patient limited Venezuelan proficient: No *Physical Exam - Vital Signs Last Vital Signs Temp Pulse Resp BP Pulse Ox 98.5 F 79 18 127/89 98 10/06/19 09:38 10/06/19 09:38 10/06/19 09:38 10/06/19 09:38 10/06/19 09:38 - Physical Exam 10/06/19 13:39 GENERAL: The patient is awake, alert, and fully oriented, in no acute distress. HEAD: Normal with no signs of trauma. EYES: Pupils equal, round and reactive to light, extraocular movements intact, sclera anicteric, conjunctiva clear. EXTREMITIES: Normal range of motion, no edema. NEUROLOGICAL: Normal speech, normal gait. PSYCH: Normal mood, normal affect. SKIN: 3cm nonhealing ulcer to the right lateral ankle with a subcentimeter area of tunneling. No purulent drainage noted from the site. No evidence of overlying secondary infection. Left lateral ankle with a stitch just superior to the lateral malleolus. Mild erythema overlying the stitch. Warm, Dry, normal turgor, no rashes or lesions noted. Medical Decision Making - Medical Decision Making 10/06/19 13:46 The patient is a 49-year-old female with past medical history of peripheral vascular disease, who presents to the ER today for evaluation of wounds to her lower extremities. She states that she had a ruptured varicose vein on the left lateral ankle and one week ago had a stitch placed. She notes that there is some redness over the area. She also states she has a nonhealing ulcer over her right ankle for which she has a follow-up with the vascular specialist. She has a follow-up appointment for October 07. Denies fevers, chills, numbness , tingling and weakness the affected extremities. A/P: Wound evaluations. On exam, 3cm nonhealing ulcer to the right lateral ankle with a subcentimeter area of tunneling. No purulent drainage noted from the site. No evidence of overlying secondary infection. Left lateral ankle with a stitch just superior to the lateral malleolus. Mild erythema overlying the stitch. Stitch removed from the left lateral ankle.Possible overlying cellulitis. Area marked. We will start on Bactrim and Keflex. Right ankle with a nonhealing ulcer. No signs of active infection at this time. We will have patient return in 2 days for wound check. Discharge home I discussed the physical exam findings, ancillary test results and final diagnoses with the patient. I answered all of the patient's questions. The patient was satisfied with the care received and felt comfortable with the discharge plan and treatment plan. The Patient agrees to follow up with the primary care physician/specialist within 24-72 hours. Return precautions were given. Discharge - Discharge Information Problems reviewed: Yes Clinical Impression/Diagnosis: Cellulitis Qualifiers: Site of cellulitis: extremity Site of cellulitis of extremity: lower extremity Laterality: left Qualified Code(s): L03.116 - Cellulitis of left lower limb Condition: Stable Disposition: HOME - Admission No - Additional Discharge Information Prescriptions: Cephalexin Monohydrate [Keflex -] 500 mg PO BID #14 capsule Sulfamethoxazole/Trimethoprim [Bactrim Ds -] 1 tab PO BID #14 tablet - Follow up/Referral Referrals: Jacob Castillo DO [Staff Physician] - - Patient Discharge Instructions Patient Printed Discharge Instructions: DI for Cellulitis -- Adult Additional Instructions: You have cellulitis. This is a skin infection. Your stitch was removed today. Please take the Bactrim and Keflex twice a day for one week. Please take all the antibiotics even if you feel better. You may use warm water soaks to the area. Please do this approximately 4-5 times a day. Please avoid shaving the skin around the area of redness. You may take Tylenol as needed for pain. Please follow up with your primary care doctor in 1 week. Return to the emergency department if you have worsening redness, fevers, increasing pain, or have any changes in your symptoms. - Post Discharge Activity
== END 2019-10-06 11:44 | disposition home or self-care (01) ==
LOC: JER 09:29 → JERFT 09:29
DX: L03.116 Cellulitis of left lower limb (principal); D64.9 Anemia, unspecified
CPT/HCPCS: 99281-25

== ENCOUNTER 2019-10-12 14:53 | Inpatient (IN) | payer OTHER ==
--- NOTE | 2019-10-12 15:13 | PDOC ---
Rapid Medical Evaluation Medical Evaluation: Allergies Allergy/AdvReac Type Severity Reaction Status Date / Time No Known Allergies Allergy Verified 10/06/19 09:37 I have performed a brief in-person evaluation of this patient. The patient presents with a chief complaint of: SOB x 4 days; has hx of anemia due to menorrhagia (due to fibroids); is currently on menstrual cycle; has hx of PVD, brain aneurysm s/p clipping (is on ASA and plavix); denies cp Pertinent physical exam findings: In NAD, +RLE swelling, no calf tenderness I have ordered the following: RLE US, labs, ekg, cxr The patient will proceed to the ED for further evaluation. 10/12/19 15:10
[2019-10-12 16:00] LABS: BASO % 0.8 % (0-2.0); EOS % 2.9 % (0-4.5); HEMATOCRIT 21.7 % (32.4-45.2); LYMPH % 14.2 % (8-40); MCH 25.2 pg (25.7-33.7); MCHC 30.8 g/dl (32.0-36.0); MEAN CELL VOLUME 81.8 fl (80-96); MEAN PLT VOLUME 8.4 fl (7.5-11.1); MONO % 7.8 % (3.8-10.2); NEUT % 74.3 % (42.8-82.8); PLATELET COUNT 316 K/MM3 (134-434); RBC 2.65 M/mm3 (3.60-5.2); RDW 19.5 % (11.6-15.6); WHITE BLOOD COUNT 9.2 K/mm3 (4.0-10.0)
[2019-10-12 16:13] LABS: HEMOGLOBIN 6.7 GM/dL (10.7-15.3)
[2019-10-12 16:17] LABS: INR 1.05 (0.83-1.09); PROTHROMBIN TIME (PATIENT) 12.4 SEC (9.7-13.0)
[2019-10-12 16:19] LABS: ACTIVATED PTT 26.1 SECONDS (25.2-36.5)
--- NOTE | 2019-10-12 16:24 | PDOC ---
History of Present Illness - General Chief Complaint: Shortness of Breath Stated Complaint: RT LEG PAIN Time Seen by Provider: 10/12/19 15:10 History Source: Patient Exam Limitations: No Limitations - History of Present Illness Initial Comments: 10/12/19 16:24 PCP: None HPI: 49yo F PMH anemia 2/2 menorrhagia (fibroids), PVD, brain aneurysm s/p clipping (ASA and Plavix), presenting with SOB for 4 days. Patient was seen here at [facility] several times over the past month for evaluation of cellulitis. Appointment scheduled for vascular surgery at [facility] on Saturday for evaluation of LE PVD. Patient noticed SOB on exertion progressing to at rest at home. Noted she is on her menstrual cycle and had required transfusion multiple times for symptomatic anemia 2/2 heavy menstrual flow. Denies chest pain, diaphoresis, immobilization, hemoptysis, fevers, chills. All: NKDA Meds: Per chart PMH: As above PSH: Per chart Past History - Travel Traveled outside of the country in the last 30 days: No Close contact w/someone who was outside of country & ill: No - Past Medical History Allergies/Adverse Reactions: Allergies Allergy/AdvReac Type Severity Reaction Status Date / Time No Known Allergies Allergy Verified 10/12/19 15:14 Home Medications: Ambulatory Orders Ferrous Sulfate [Feosol] 325 mg PO DAILY 01/31/18 Cephalexin Monohydrate [Keflex -] 500 mg PO BID #14 capsule 10/06/19 Sulfamethoxazole/Trimethoprim [Bactrim Ds -] 1 tab PO BID #14 tablet 10/06/19 Anemia: Yes Asthma: No Cancer: No Cardiac Disorders: No CVA: No COPD: No CHF: No Dementia: No Diabetes: No GI Disorders: No Disorders: No HTN: No Hypercholesterolemia: No Liver Disease: No Seizures: No Thyroid Disease: No Other medical history: brain anuerysm, sx - Surgical History Abdominal Surgery: Yes (gallstones removed) Appendectomy: No Cardiac Surgery: No (peripheral stents) Cholecystectomy: Yes (1996) Lung Surgery: No Neurologic Surgery: No Orthopedic Surgery: No - Immunization History Immunization Up to Date: Yes - Psycho Social/Smoking Cessation Hx Smoking Status: No Smoking History: Never smoked Years of Tobacco Use: 0 Have you smoked in the past 12 months: No Number of Cigarettes Smoked Daily: 0 Cigars Per Day: 0 Hx Alcohol Use: No Drug/Substance Use Hx: No Substance Use Type: Alcohol Hx Substance Use Treatment: No Review of Systems - Review of Systems Able to Perform ROS?: Yes Is the patient limited Azeri proficient: Yes Constitutional: No: Chills, Fever HEENTM: No: Recent change in vision, Nose Congestion, Throat Pain Respiratory: No: Cough, Shortness of Breath, Wheezing Cardiac (ROS): No: Chest Pain, Irregular Heart Rate, Palpitations, Syncope ABD/GI: No: Blood Streaked Bowels, Constipated, Diarrhea, Nausea, Rectal Bleeding, Vomiting, Tarry Stools : No: Burning, Dysuria, Frequency Musculoskeletal: No: Muscle Pain, Muscle Weakness, Neck Pain, Joint Stiffness Integumentary: No: Bruising, Change in Color, Rash Neurological: No: Headache, Numbness, Tingling, Weakness Psychiatric: No: Stressors, Change in Appetite Endocrine: No: Increased Urine, Unexplained Weight Gain, Change in Weight Hematologic/Lymphatic: Yes: See HPI, Anemia, Easy Bleeding. No: Blood Clots, Bleeding Diathesis All Other Systems: Reviewed and Negative *Physical Exam - Vital Signs Last Vital Signs Temp Pulse Resp BP Pulse Ox 98.9 F 101 H 22 H 119/59 L 100 10/12/19 15:10 10/12/19 15:10 10/12/19 15:10 10/12/19 15:10 10/12/19 15:10 - Physical Exam 10/12/19 17:07 VITALS: AFVSS GEN: Well appearing, NAD, comfortable. AAOx3. HEENT: NC/AT, EOMI, PERRLA. No facial asymmetry. Moist mucous membranes. Normal voice. Supple neck w/ FROM. CV: S1/S2, RRR, no m/r/g LUNG: CTAB, no wheezes, crackles, rales, rhonchi. GI: Soft, ndnt, +BS, no guarding, no rebound. No masses. Neg CVAT b/l. EXTREMITIES: 2+ distal pulses. +RLE swelling, non-tender. SKIN: Warm, dry, no rashes appreciated. PSYCH: Normal mood and affect. NEURO: Moving all extremities well. ED Treatment Course - LABORATORY CBC & Chemistry Diagram: 10/12/19 15:37 10/12/19 15:37 - ADDITIONAL ORDERS Additional order review: Laboratory Results 10/12/19 10/12/19 15:37 15:37 PT with INR 12.40 INR 1.05 PTT (Actin FS) 26.1 Urine HCG, Qual Negative 10/12/19 15:37 RBC 2.65 L MCV 81.8 MCHC 30.8 L RDW 19.5 H MPV 8.4 Neutrophils % 74.3 D Lymphocytes % 14.2 D Monocytes % 7.8 Eosinophils % 2.9 Basophils % 0.8 Medical Decision Making - Medical Decision Making 10/12/19 17:08 49yo F PMH anemia 2/2 menorrhagia (fibroids), PVD, brain aneurysm s/p clipping ( ASA and Plavix), presenting with SOB for 4 days. - CBC, CMP, T&S, Coags, - Duplex US - EKG, CXR 10/12/19 17:38 - Call received from Dr. Brady, Radiology, regarding a venous thrombus extending the length of the great saphenous vein - 1U PRBCs ordered 10/12/19 18:14 Admit Med/Surg for Symptomatic Anemia Patient requesting vascular consult for PVD, now with superficial venous thrombosis in LE 10/12/19 18:38 Sign-out given to inpatient team, attending pending Discharge - Discharge Information Problems reviewed: Yes Clinical Impression/Diagnosis: Symptomatic anemia Condition: Stable Disposition: HOME - Follow up/Referral - Patient Discharge Instructions - Post Discharge Activity
[2019-10-12 16:39] LABS: ALBUMIN 3.3 g/dl (3.4-5.0); BILIRUBIN,TOTAL 0.2 mg/dL (0.2-1); BLOOD UREA NITROGEN 10.3 mg/dL (7-18); CALCIUM 8.7 mg/dL (8.5-10.1); CREATININE 0.9 mg/dL (0.55-1.3); POTASSIUM 4.4 mmol/L (3.5-5.1); TOT PROT 6.8 g/dl (6.4-8.2)
--- NOTE | 2019-10-12 19:25 | PN ---
Teaching Attending Note Name of Resident: Juan Marcelino ATTENDING PHYSICIAN STATEMENT I saw and evaluated the patient. I reviewed the resident's note and discussed the case with the resident. I agree with the resident's findings and plan as documented. SUBJECTIVE: Patient is a 49 year old woman with a PMH of Anemia due to menorrhagia (fibroids ), PVD, Bilateral ankle wounds and Brain aneurysm s/p clipping (ASA and Plavix) , presenting with SOB for 4 days. Patient was seen here at [facility] several times over the past month for evaluation of cellulitis. Appointment scheduled for vascular surgery at [facility] on Saturday for evaluation of LE PVD. Patient noticed SOB on exertion progressing to at rest at home. Noted she is on her menstrual cycle and had required transfusion multiple times for symptomatic anemia due to heavy menstrual flow. Denies chest pain, diaphoresis, immobilization, hemoptysis , fevers, chills, nausea, vomiting, headache, diarrhea, hematuria, melena stool , hematochezia or dysuria. No recent travel or sick contacts. Denies alcohol, tobacco or illicit drug use. OBJECTIVE: Alert Vital Signs Period Temp Pulse Resp BP Sys/Mae Pulse Ox Last 24 Hr 98.6 F-99.0 F 100-105 16-22 107-119/59-80 100-100 HEENT: No Jaundice, eye redness or discharge, PERRLA, EOMI. Normocephalic, atraumatic. External ears are normal and hearing is grossly intact. No nasal discharge. Neck: Supple, nontender. No palpable adenopathy or thyromegaly. No JVD Chest: Good effort. Clear to auscultation and percussion. Heart: Regular. No S3, rub or murmur Abdomen: Not distended, soft, nontender and no HSM. No rebound or guarding. Normal bowel sounds. Ext: Peripheral pulses intact. No leg edema. Bilateral healing ankle wounds. Skin: Warm and dry. No petechiae, rash or ecchymosis. Neuro: Alert. Oriented x3. CN 2-12 grossly intact. Sensation grossly intact in all four extremities and DTR are symmetric. Psych: Appropriate mood and affect. Good insight. Home Medications Medication Instructions Recorded Ferrous Sulfate [Feosol] 325 mg PO DAILY 01/31/18 Cephalexin Monohydrate [Keflex -] 500 mg PO BID #14 capsule 10/06/19 Sulfamethoxazole/Trimethoprim 1 tab PO BID #14 tablet 10/06/19 [Bactrim Ds -] Aspirin [ASA -] 325 mg PO DAILY 10/12/19 Clopidogrel Bisulfate [Plavix] 75 mg PO DAILY 10/12/19 Abnormal Lab Results 10/12/19 10/12/19 10/12/19 15:37 15:37 15:37 RBC 2.65 L Hgb 6.7 L* Hct 21.7 L D MCH 25.2 L MCHC 30.8 L RDW 19.5 H Anion Gap 7 L Alkaline Phosphatase 123 H Albumin 3.3 L Crossmatch See Detail ASSESSMENT AND PLAN: 1. Symptomatic anemia - Will do basic anemia work up including serial stool guaiacs, reticulocyte count and iron studies. Would benefit from IV iron therapy in the future. Being transfused PRBC. 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 Doppler scan shows thrombosis of right greater saphenous vein - will clarify results with radiology and get [facility]cords from [facility] about brain aneurysm clipping. Patient is on Plavix, ASA - will consult cardiology and neurosurgery about possible anticoagulation for ?DVT. No acute abnormality on CXR. Urinalysis pending. Will continue comprehensive care for all of patients comorbid conditions. 2. Hypoalbuminemia - Possibly due to combined effects of malnutrition and inflammation associated with comorbid chronic conditions. Will ensure adequate dietary protein intake and also consult recep. 3. Obesity Counseled on the risks associated with obesity. Will provide patient all the necessary assistance, counseling and positive reinforcement to facilitate weight loss. Consult recep. 4. DVT prophylaxis - Lovenox 40 mg SQ q 24 hours. 5. Advance directives - Full code
--- NOTE | 2019-10-12 22:03 | HP ---
CHIEF COMPLAINT:shortness of breath PCP: [facility] HISTORY OF PRESENT ILLNESS: 49 yo F PMH of anemia 2/2 fibroids and menometorrhagia, brain aneurysm ( s/p clipping 08/2019), presents to the ED with 4 days of shortness of breath. pt states that she notices this is worse with activity. she states that for five years she has been having abnormal menstrual cycles which have been worsening. she states that this last cycle has been occuring for over a month and is bleeding so much she has to change a pad several times over an hour. she also states that since her brain aneurysm clipping she has been having LE swelling and pain. pt was last at ER a week ago for LE problems and was Dx with cellulitis, which she has been on Keflex and bactrim ER course was notable for: (1) Duplex LE- + thrombosis of great saphenous (2)Hgb 6.7 (3)1U pRBC Recent Travel: denies PAST MEDICAL HISTORY: see HPI PAST SURGICAL HISTORY: brain aneurysm clipping cholecystectomy R leg stent hernia repair Social History: Smoking:denies Alcohol:social Drugs: denies Family Hx: colon Ca in sister at 45 Allergies No Known Allergies Allergy (Verified 10/12/19 15:14) HOME MEDICATIONS: Home Medications Medication Instructions Recorded Ferrous Sulfate [Feosol] 325 mg PO DAILY 01/31/18 Cephalexin Monohydrate [Keflex -] 500 mg PO BID #14 capsule 10/06/19 Sulfamethoxazole/Trimethoprim 1 tab PO BID #14 tablet 10/06/19 [Bactrim Ds -] Aspirin [ASA -] 325 mg PO DAILY 10/12/19 Clopidogrel Bisulfate [Plavix] 75 mg PO DAILY 10/12/19 REVIEW OF SYSTEMS CONSTITUTIONAL: Present: chills Absent: fever, diaphoresis, generalized weakness, malaise, loss of appetite, weight change HEENT: Absent: rhinorrhea, nasal congestion, throat pain, throat swelling, difficulty swallowing, mouth swelling, ear pain, eye pain, visual changes CARDIOVASCULAR: Present: palpitations Absent: chest pain, syncope, irregular heart rate, lightheadedness, peripheral edema RESPIRATORY: Present: shortness of breath, dyspnea with exertion Absent: cough, orthopnea, wheezing, stridor, hemoptysis GASTROINTESTINAL: Absent: abdominal pain, abdominal distension, nausea, vomiting, diarrhea, constipation, melena, hematochezia GENITOURINARY: Absent: dysuria, frequency, urgency, hesitancy, hematuria, flank pain, genital pain MUSCULOSKELETAL: Absent: myalgia, arthralgia, joint swelling, back pain, neck pain SKIN: Absent: rash, itching, pallor HEMATOLOGIC/IMMUNOLOGIC: Absent: easy bleeding, easy bruising, lymphadenopathy, frequent infections ENDOCRINE: Absent: unexplained weight gain, unexplained weight loss, heat intolerance, cold intolerance NEUROLOGIC: Absent: headache, focal weakness or paresthesias, dizziness, unsteady gait, seizure, mental status changes, bladder or bowel incontinence PHYSICAL EXAMINATION Vital Signs - 24 hr 10/12/19 10/12/19 10/12/19 15:10 18:50 19:15 Temperature 98.9 F 98.6 F 99.0 F Pulse Rate 101 H Pulse Rate [ 100 H 105 H Left Brachial] Respiratory 22 H 16 17 Rate Blood Pressure 119/59 L Blood Pressure 117/80 107/71 [Left Arm] O2 Sat by Pulse 100 100 100 Oximetry (%) GENERAL: Awake, alert, and fully oriented, in no acute distress. HEAD: Normal with no signs of trauma. EYES: Pupils equal, round and reactive to light, extraocular movements intact EARS, NOSE, THROAT:oropharynx clear without exudates. Moist mucous membranes. NECK: Normal range of motion, supple without lymphadenopathy, JVD, or masses. LUNGS: Breath sounds equal, clear to auscultation bilaterally. No wheezes, and no crackles. No accessory muscle use. HEART: Regular rate and rhythm, normal S1 and S2 without murmur, rub or gallop. ABDOMEN: Soft, nontender, not distended, normoactive bowel sounds, no guarding, no rebound, no masses. MUSCULOSKELETAL: Normal range of motion at all joints. No bony deformities or tenderness. No CVA tenderness. UPPER EXTREMITIES: 2+ pulses, warm, well-perfused. No cyanosis. No clubbing. No peripheral edema. LOWER EXTREMITIES: 2+ pulses, warm, well-perfused. No calf tenderness. No peripheral edema. NEUROLOGICAL: Cranial nerves II-XII intact. Normal speech. PSYCHIATRIC: Cooperative. Good eye contact. Appropriate mood and affect. SKIN: Warm, dry, normal turgor, no rashes or lesions noted, normal capillary refill. Laboratory Last Values WBC 9.2 K/mm3 (4.0-10.0) 10/12/19 15:37 RBC 2.65 M/mm3 (3.60-5.2) L 10/12/19 15:37 Hgb 6.7 GM/dL (10.7-15.3) L* 10/12/19 15:37 Hct 21.7 % (32.4-45.2) L D 10/12/19 15:37 MCV 81.8 fl (80-96) 10/12/19 15:37 MCH 25.2 pg (25.7-33.7) L 10/12/19 15:37 MCHC 30.8 g/dl (32.0-36.0) L 10/12/19 15:37 RDW 19.5 % (11.6-15.6) H 10/12/19 15:37 Plt Count 316 K/MM3 (134-434) 10/12/19 15:37 MPV 8.4 fl (7.5-11.1) 10/12/19 15:37 Absolute Neuts (auto) 6.8 K/mm3 (1.5-8.0) 10/12/19 15:37 Neutrophils % 74.3 % (42.8-82.8) D 10/12/19 15:37 Lymphocytes % 14.2 % (8-40) D 10/12/19 15:37 Monocytes % 7.8 % (3.8-10.2) 10/12/19 15:37 Eosinophils % 2.9 % (0-4.5) 10/12/19 15:37 Basophils % 0.8 % (0-2.0) 10/12/19 15:37 Nucleated RBC % 0 % (0-0) 10/12/19 15:37 PT with INR 12.40 SEC (9.7-13.0) 10/12/19 15:37 INR 1.05 (0.83-1.09) 10/12/19 15:37 PTT (Actin FS) 26.1 SECONDS (25.2-36.5) 10/12/19 15:37 Sodium 137 mmol/L (136-145) 10/12/19 15:37 Potassium 4.4 mmol/L (3.5-5.1) 10/12/19 15:37 Chloride 106 mmol/L (98-107) 10/12/19 15:37 Carbon Dioxide 24 mmol/L (21-32) 10/12/19 15:37 Anion Gap 7 MMOL/L (8-16) L 10/12/19 15:37 BUN 10.3 mg/dL (7-18) 10/12/19 15:37 Creatinine 0.9 mg/dL (0.55-1.3) 10/12/19 15:37 Est GFR (CKD-EPI)AfAm 85.80 10/12/19 15:37 Est GFR (CKD-EPI)NonAf 74.03 10/12/19 15:37 Random Glucose 97 mg/dL (74-106) 10/12/19 15:37 Calcium 8.7 mg/dL (8.5-10.1) 10/12/19 15:37 Total Bilirubin 0.2 mg/dL (0.2-1) 10/12/19 15:37 AST 31 U/L (15-37) 10/12/19 15:37 ALT 49 U/L (13-61) 10/12/19 15:37 Alkaline Phosphatase 123 U/L (45-117) H 10/12/19 15:37 Total Protein 6.8 g/dl (6.4-8.2) 10/12/19 15:37 Albumin 3.3 g/dl (3.4-5.0) L 10/12/19 15:37 Urine HCG, Qual Negative 10/12/19 15:37 Blood Type AB POSITIVE 10/12/19 15:37 Antibody Screen Negative 10/12/19 15:37 Crossmatch See Detail 10/12/19 15:37 ASSESSMENT/PLAN: 49 yo F PMH of anemia 2/2 fibroids and menometorrhagia, brain aneurysm ( s/p clipping 08/2019), presents to the ED with 4 days of shortness of breath. 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 I reviewed the resident's note and discussed the case with the resident. I agree with the resident's findings and plan as documented. SUBJECTIVE: OBJECTIVE: ASSESSMENT AND PLAN:
--- NOTE | 2019-10-13 01:49 | PDOC ---
Documentation entered by Mare Johnson SCRIBE, acting as scribe for Nohemi Roman MD. Nohemi Roman MD: This documentation has been prepared by the Alex tellez Nirvannie, SCRIBE, under my direction and personally reviewed by me in its entirety. I confirm that the documentation accurately reflects all work, treatment, procedures, and medical decision making performed by me. Attending Attestation - Resident Resident Name: Robert Hanson - ED Attending Attestation I have performed the following: I have examined & evaluated the patient, The case was reviewed & discussed with the resident, I agree w/resident's findings & plan, Exceptions are as noted - HPI HPI: 10/12/19 18:27 The patient is a 49 year old female, with a significant past medical history of anemia secondary to fibroids, PVD, brain aneurysm (s/p clipping on ASA and plavix) who presents to the emergency department with 4 days of shortness of breath. Patient currently on menstrual cycle. Allergies: NKDA Past surgical history: Abdominal hernia repair (01/21/17). Right femoral aneurysm (s/p stent placement 2007). Cholecystectomy (1996). - Physicial Exam PE: 10/13/19 01:[address] Hanson's physical exam. - Medical Decision Making 10/13/19 01:41 Patient's hemoglobin was 6.7 and her hematocrit was 21.7 and she requires a blood transfusion Patient admitted Duplex Doppler did not show a deep vein thrombosis but there was superficial venous thrombosis noted
[2019-10-13 06:41] VITALS: BMI 34.2
[2019-10-13 07:31] LABS: BASO % 1.1 % (0-2.0); EOS % 5.1 % (0-4.5); HEMATOCRIT 21.8 % (32.4-45.2); LYMPH % 20.3 % (8-40); MCH 25.8 pg (25.7-33.7); MCHC 31.8 g/dl (32.0-36.0); MEAN CELL VOLUME 81.2 fl (80-96); MEAN PLT VOLUME 8.5 fl (7.5-11.1); MONO % 8.8 % (3.8-10.2); NEUT % 64.7 % (42.8-82.8); PLATELET COUNT 299 K/MM3 (134-434); RBC 2.68 M/mm3 (3.60-5.2); RDW 18.2 % (11.6-15.6); WHITE BLOOD COUNT 6.8 K/mm3 (4.0-10.0)
[2019-10-13 07:46] LABS: ALBUMIN 2.9 g/dl (3.4-5.0); BILIRUBIN,TOTAL 0.3 mg/dL (0.2-1); CALCIUM 8.2 mg/dL (8.5-10.1); CREATININE 0.9 mg/dL (0.55-1.3); MAGNESIUM 2.6 mg/dL (1.8-2.4); PHOSPHOROUS 4.6 mg/dL (2.5-4.9); POTASSIUM 4.2 mmol/L (3.5-5.1)
[2019-10-13 08:04] LABS: HEMOGLOBIN 6.9 GM/dL (10.7-15.3)
--- NOTE | 2019-10-13 08:19 | PN ---
Progress Note (short form) - Note Progress Note: NEUROSURGERY CONSULT DICTATED Chart reviewed Pt examined h/o anemia from fibroids and menometorrhagia, brain aneurysm (s/p endovascular treatment 08/2019) c/o 4 days of shortness of breath worse with activity. Since brain aneurysm tx c/o LE swelling and pain. In ER a week ago for LE problems and was Dx with cellulitis, and Rx'd Keflex and bactrim PE; AF, VSS HEENT- NC/AT; Neck- supple; Cor- RRR; Lungs- CTA B; Abd- benign; Ext- mild R LE edema CN- intact; Motor- 5/5 without drift; Sensation- intact LT; DTR- 2+ B UE/LE LE doppler: R greater saphenous vein thrombosis, R foot dorsum cyst Recent (08/2019) endovascular ? coiling of asymptomatic aneurysm at [facility] Head CT to r/o HCP then f/u with treating physician for her aneurysm Tx of superficial thrombophlebitis per medical team
[2019-10-13] MEDS: ASPIRIN 325 MG TABLET PO SCH (09:27)
[2019-10-13] MEDS: CLOPIDOGREL BISULFATE 75 MG TABLET (FP) PO SCH (09:27)
--- NOTE | 2019-10-13 12:13 | PN ---
Physical Exam: SUBJECTIVE: Patient seen and examined at the bedside. agrees to stay for blood transfusion. denies shortness of breath. OBJECTIVE: Patient is a 49 year old female with a significant past medical history of anemia 2/2 fibroids and menometorrhagia, brain aneurysm ( s/p clipping 08/2019) , presents to the ED with 4 days of shortness of breath. pt states that she notices this is worse with activity. she states that for five years she has been having abnormal menstrual cycles which have been worsening. she states that this last cycle has been occuring for over a month and is bleeding so much she has to change a pad several times over an hour. she also states that since her brain aneurysm clipping she has been having LE swelling and pain. pt was last at ER a week ago for LE problems and was Dx with cellulitis. She has been transfused a total of 2 units of prbc today, will receive her 3rd unit tonight and repeat cbc in a.m. Vital Signs Period Temp Pulse Resp BP Sys/Mae Pulse Ox Last 24 Hr 97.9 F-99.0 F 90-105 16-22 104-121/59-80 94-100 GENERAL: The patient is awake, alert, and fully oriented, in no acute distress. HEAD: Normal with no signs of trauma. EYES: PERRL, extraocular movements intact, sclera anicteric, conjunctiva clear. No ptosis. ENT: Ears normal, nares patent, oropharynx clear without exudates NECK: Trachea midline, full range of motion, supple. LUNGS: Breath sounds equal, clear to auscultation bilaterally HEART: Regular rate and rhythm ABDOMEN: Soft, nontender, nondistended, normoactive bowel sounds EXTREMITIES: 2+ pulses, warm, well-perfused, no edema. NEUROLOGICAL: . Normal speech, gait not observed. PSYCH: Normal mood, normal affect. SKIN: Warm, dry, normal turgor, no rashes or lesions noted Laboratory Results - last 24 hr 10/12/19 10/12/19 10/12/19 15:37 15:37 15:37 WBC 9.2 RBC 2.65 L Hgb 6.7 L* Hct 21.7 L D MCV 81.8 MCH 25.2 L MCHC 30.8 L RDW 19.5 H Plt Count 316 MPV 8.4 Absolute Neuts (auto) 6.8 Neutrophils % 74.3 D Lymphocytes % 14.2 D Monocytes % 7.8 Eosinophils % 2.9 Basophils % 0.8 Nucleated RBC % 0 PT with INR 12.40 INR 1.05 PTT (Actin FS) 26.1 Sodium 137 Potassium 4.4 Chloride 106 Carbon Dioxide 24 Anion Gap 7 L BUN 10.3 Creatinine 0.9 Est GFR (CKD-EPI)AfAm 85.80 Est GFR (CKD-EPI)NonAf 74.03 Random Glucose 97 Calcium 8.7 Phosphorus Magnesium Total Bilirubin 0.2 AST 31 ALT 49 Alkaline Phosphatase 123 H Total Protein 6.8 Albumin 3.3 L Urine HCG, Qual Blood Type Antibody Screen Crossmatch 10/12/19 10/12/19 10/13/19 15:37 15:37 06:15 WBC 6.8 RBC 2.68 L Hgb 6.9 L* Hct 21.8 L MCV 81.2 MCH 25.8 MCHC 31.8 L RDW 18.2 H Plt Count 299 MPV 8.5 Absolute Neuts (auto) 4.4 Neutrophils % 64.7 Lymphocytes % 20.3 D Monocytes % 8.8 Eosinophils % 5.1 H Basophils % 1.1 Nucleated RBC % 0 PT with INR INR PTT (Actin FS) Sodium Potassium Chloride Carbon Dioxide Anion Gap BUN Creatinine Est GFR (CKD-EPI)AfAm Est GFR (CKD-EPI)NonAf Random Glucose Calcium Phosphorus Magnesium Total Bilirubin AST ALT Alkaline Phosphatase Total Protein Albumin Urine HCG, Qual Negative Blood Type AB POSITIVE Antibody Screen Negative Crossmatch See Detail 10/13/19 06:15 WBC RBC Hgb Hct MCV MCH MCHC RDW Plt Count MPV Absolute Neuts (auto) Neutrophils % Lymphocytes % Monocytes % Eosinophils % Basophils % Nucleated RBC % PT with INR INR PTT (Actin FS) Sodium 139 Potassium 4.2 Chloride 106 Carbon Dioxide 26 Anion Gap 7 L BUN 10.0 Creatinine 0.9 Est GFR (CKD-EPI)AfAm 85.80 Est GFR (CKD-EPI)NonAf 74.03 Random Glucose 87 Calcium 8.2 L Phosphorus 4.6 Magnesium 2.6 H Total Bilirubin 0.3 AST 23 ALT 39 Alkaline Phosphatase 115 Total Protein 6.0 L Albumin 2.9 L Urine HCG, Qual Blood Type Antibody Screen Crossmatch Active Medications Generic Name Dose Route Start Last Admin Trade Name Freq PRN Reason Stop Dose Admin Acetaminophen 650 mg 10/13/19 00:06 Tylenol - PO Q4H PRN PAIN LEVEL 7 - 10 Aspirin 325 mg 10/13/19 10:00 10/13/19 09:27 Asa - PO 325 mg DAILY BETZY Administration Clopidogrel Bisulfate 75 mg 10/13/19 10:00 10/13/19 09:27 Plavix - PO 75 mg DAILY BETZY Administration ASSESSMENT/PLAN: Symptomatic Anemia Patient reports a chronic on going problem with fibroids/menometorrhagia. she has been told she is unable to have fibroids removed as asa/plavix cannot be stopped. s/p 2 unit of prbc, hmg 6.9>8.3 will transfuse 1 more unit. principal ios developer as an outpatient, patient agrees to follow up. repeat cbc in a.m. Great Saphenous Vein Thrombosis has a vascular appt this week, outpatient seen by surgery here. notes reviewed and appreciated. Brain Aneurysm s/p clipping Seen by neurosurgery on asa/plavix. Problem List - Problems (1) Greater saphenous vein embolism Code(s): I82.819 - EMBOLISM AND THROMBOSIS OF SUPERFICIAL VN UNSP LOW EXTRM Qualifiers: Laterality: right Qualified Code(s): I82.811 - Embolism and thrombosis of superficial veins of right lower extremity (2) Symptomatic anemia Code(s): D64.9 - ANEMIA, UNSPECIFIED (3) Dysfunctional uterine bleeding Code(s): N93.8 - OTHER SPECIFIED ABNORMAL UTERINE AND VAGINAL BLEEDING Visit type - Emergency Visit Emergency Visit: Yes ED Registration Date: 10/12/19 Care time: The patient presented to the Emergency Department on the above date and was hospitalized for further evaluation of their emergent condition. - New Patient This patient is new to me today: Yes Date on this admission: 10/13/19 - Critical Care Critical Care patient: No - Discharge Referral Referred to [facility] No
--- NOTE | 2019-10-13 12:58 | EKG ---
Test Reason : Blood Pressure : / mmHG Vent. Rate : 098 BPM Atrial Rate : 098 BPM P-R Int : 144 ms QRS Dur : 068 ms QT Int : 348 ms P-R-T Axes : 075 001 043 degrees QTc Int : 444 ms NORMAL SINUS RHYTHM NORMAL ECG WHEN COMPARED WITH ECG OF 30-JAN-2018 21:40, NO SIGNIFICANT CHANGE WAS FOUND Confirmed by MD Renae Daniel ([id number]) on 10/13/2019 12:58:37 PM Referred By: Confirmed By:Eduardo Renae MD
--- NOTE | 2019-10-13 13:40 | CONSULT ---
- Consultation REQUESTING PROVIDER: CONSULT REQUEST: We have been asked to surgically evaluate this patient for Rt leg greater saphenous vein thrombosis PCP:Porter Maher NP HISTORY OF PRESENT ILLNESS: 49yo F states that she has been having Rt leg pain and swelling on her Rt inner thigh for several weeks. Pt states she has history of venous stasis ulcers, but does not follow up with vascular surgeon she is scheduled to see Dr. Daugherty at [facility] this week. Pt currently has wound on her Rt lateral ankle, that she is treating with bandaids. Pt denies vascular surgery or intervention. Pt is currently admitted for GI bleed and anemia. Pt is currently on ASA and Plavix after having aneurysm clipping in 08/25. Pt denies h/o smoking or Diabetes. Home Medications Medication Instructions Recorded Ferrous Sulfate [Feosol] 325 mg PO DAILY 01/31/18 Cephalexin Monohydrate [Keflex -] 500 mg PO BID #14 capsule 10/06/19 Sulfamethoxazole/Trimethoprim 1 tab PO BID #14 tablet 10/06/19 [Bactrim Ds -] Aspirin [ASA -] 325 mg PO DAILY 10/12/19 Clopidogrel Bisulfate [Plavix] 75 mg PO DAILY 10/12/19 Allergies Allergy/AdvReac Type Severity Reaction Status Date / Time No Known Allergies Allergy Verified 10/12/19 15:14 PHYSICAL EXAM: GENERAL: Awake, alert, and fully oriented, in no acute distress. HEAD: Normal with no signs of trauma. EYES: PERRL, sclera anicteric, conjunctiva clear. NECK: Normal ROM, HEART: Regular rate and rhythm. UPPER EXTREMITIES: warm, well-perfused. No cyanosis. Cap refill <2 seconds. No peripheral edema. LOWER EXTREMITIES: 2+ pulses, warm, well-perfused. No calf tenderness. RLE shows tenderness and hard swelling along Greater saphenous vein, mild erythema. Rt lateral maleolus shows 1 cm ulcer with serous drainage. +1 edema. NEUROLOGICAL: Normal speech, gait not observed. PSYCH: Cooperative. Good eye contact. Appropriate mood and affect. SKIN: Warm, dry, normal turgor, no rashes or lesions noted. Vital Signs Temperature 97.8 F 10/13/19 13:00 Pulse Rate 99 H 10/13/19 13:00 Respiratory Rate 18 10/13/19 13:00 Blood Pressure 118/62 10/13/19 13:00 O2 Sat by Pulse Oximetry (%) 100 10/13/19 09:00 Lab Results WBC 6.8 K/mm3 (4.0-10.0) 10/13/19 06:15 RBC 2.68 M/mm3 (3.60-5.2) L 10/13/19 06:15 Hgb 6.9 GM/dL (10.7-15.3) L* 10/13/19 06:15 Hct 21.8 % (32.4-45.2) L 10/13/19 06:15 MCV 81.2 fl (80-96) 10/13/19 06:15 MCHC 31.8 g/dl (32.0-36.0) L 10/13/19 06:15 RDW 18.2 % (11.6-15.6) H 10/13/19 06:15 Plt Count 299 K/MM3 (134-434) 10/13/19 06:15 Sodium 139 mmol/L (136-145) 10/13/19 06:15 Potassium 4.2 mmol/L (3.5-5.1) 10/13/19 06:15 Chloride 106 mmol/L (98-107) 10/13/19 06:15 Carbon Dioxide 26 mmol/L (21-32) 10/13/19 06:15 Anion Gap 7 MMOL/L (8-16) L 10/13/19 06:15 BUN 10.0 mg/dL (7-18) 10/13/19 06:15 Creatinine 0.9 mg/dL (0.55-1.3) 10/13/19 06:15 Random Glucose 87 mg/dL (74-106) 10/13/19 06:15 Calcium 8.2 mg/dL (8.5-10.1) L 10/13/19 06:15 Blood Type AB POSITIVE 10/12/19 15:37 Antibody Screen Negative 10/12/19 15:37 INR 1.05 (0.83-1.09) 10/12/19 15:37 Problem List - Problems (1) Greater saphenous vein embolism Assessment/Plan: Plan -no need for anticoagulation for saphenous embolism as is peripheral vessel, recommend warm compresses and NSAIDS for pain, if allowed by GI due to h/o GI bleed. -pt needs to follow up with a vascular surgeon for venous stasis ulcer, would recommend compression dressing. -pt imformed that she can either follow up with [facility] wound clinic, or wound care clinic at [place]. Case discussed with Dr. Castillo who agrees with plan Code(s): I82.819 - EMBOLISM AND THROMBOSIS OF SUPERFICIAL VN UNSP LOW EXTRM Qualifiers: Laterality: right Qualified Code(s): I82.811 - Embolism and thrombosis of superficial veins of right lower extremity
--- NOTE | 2019-10-13 14:10 | CONS ---
DATE OF CONSULTATION: DATE OF DICTATION: 10/13/2019 REQUESTING PHYSICIAN: Nellie Cao MD CHIEF COMPLAINT: Right lower extremity swelling with recent history of aneurysm treatment. HISTORY OF PRESENT ILLNESS: Patient is a 49-year-old female with a history of fibroids and aneurysm treatment who complained of lower extremity swelling. She has a history of anemia secondary to her fibroids bleeding. She complains of a 4- day history of shortness of breath worse with exertion. She had undergone an endovascular aneurysm procedure last August and has been complaining of right lower extremity swelling and pain since. She reported was in the ER a week ago and was diagnosed with cellulitis and was treated with Keflex and Bactrim. PAST MEDICAL HISTORY: Significant for fibroids with uterine bleeding, aneurysm status post endovascular treatment. CURRENT MEDICATIONS: Include Tylenol, baby aspirin, Plavix. ALLERGIES: There are no known drug allergies. FAMILY HISTORY: Noncontributory. SOCIAL HISTORY: Patient does not smoke and only drinks alcohol socially. She does not use recreational drugs. PHYSICAL EXAMINATION: Vital Signs: Temperature 97.9, blood pressure 104/75 with a pulse rate of 90, O2 saturation 94% on room air. HEENT: Shows her to be normocephalic, atraumatic, anicteric. Neck: Supple with no nuchal rigidity. Coronary: Demonstrates a regular rhythm. Lungs: Clear bilaterally. Abdomen: Benign. Extremities: Shows slight swelling in the lower extremity. There is possible venous cord in her right thigh. There are no other signs of DVT. Skin: There is no scalp incision. Neurologic: She is awake, alert, oriented x4. Cranial nerve examination is intact 2-12. Motor examination shows 5/5 strength without a drift. Sensory examination is intact to light touch. Deep tendon reflexes are physiologic. Her gait is not tested for safety reasons. Cerebellar examination demonstrates intact [id number] examination. LABORATORY EXAMINATION: Shows white blood cell count 6.8, hemoglobin 6.9, hematocrit 21.8, platelet count 299,000, INR 1.05, PTT 26.1. Serum sodium is 139, potassium 4.2, BUN 10, creatinine 0.9. LFTs are normal except for a decreased albumin of 2.59 and total protein 6. Urinalysis negative. Right lower extremity Doppler demonstrated right greater saphenous vein superficial thrombophlebitis. There is a small cyst on the dorsum of the right foot. IMPRESSION: 1. Recent history of endovascular intracranial aneurysm treatment in August 2019. 2. Right lower extremity greater saphenous vein thrombosis. 3. Uterine fibroids. 4. History of right lower extremity stents for vascular disease. RECOMMENDATIONS: Patient presents with right lower extremity swelling for the past couple of months. It causes some discomfort. She had compelling shortness of breath upon admission. There are no fevers or chills, and white blood cell count is normal. She did undergo aneurysm treatment about 2 months ago, which was performed by endovascular access. CT of the head is ordered to assess stability of the brain parenchyma and to rule out hydrocephalus. Patient did not have a subarachnoid hemorrhage, and the risk of future subarachnoid hemorrhage should be minimal, since the aneurysm was reportedly treated already. She should follow up with her treating surgeon at [facility]. The treatment of her right lower extremity thrombophlebitis is left to the professional discretion of the treating medical team. The above was discussed with patient at bedside. All questions were answered. MARI BOONE M.D. [id number] ADAM
[2019-10-13 17:52] LABS: HEMOGLOBIN 8.3 GM/dL (10.7-15.3); MCH 26.3 pg (25.7-33.7); MCHC 31.8 g/dl (32.0-36.0); MEAN CELL VOLUME 82.6 fl (80-96); MEAN PLT VOLUME 8.8 fl (7.5-11.1); PLATELET COUNT 315 K/MM3 (134-434); RBC 3.14 M/mm3 (3.60-5.2); RDW 17.5 % (11.6-15.6); WHITE BLOOD COUNT 7.2 K/mm3 (4.0-10.0)
[2019-10-13] MEDS: ACETAMINOPHEN 325 MG TABLET (FP) PO PRN (22:05)
[2019-10-14 07:35] LABS: EOS % 4.4 % (0-4.5); HEMATOCRIT 29.5 % (32.4-45.2); HEMOGLOBIN 9.6 GM/dL (10.7-15.3); LYMPH % 11.7 % (8-40); MCH 27.2 pg (25.7-33.7); MCHC 32.5 g/dl (32.0-36.0); MEAN CELL VOLUME 83.6 fl (80-96); MEAN PLT VOLUME 8.5 fl (7.5-11.1); MONO % 9.5 % (3.8-10.2); NEUT % 73.4 % (42.8-82.8); PLATELET COUNT 343 K/MM3 (134-434); RBC 3.53 M/mm3 (3.60-5.2); RDW 17.5 % (11.6-15.6); WHITE BLOOD COUNT 8.7 K/mm3 (4.0-10.0)
[2019-10-14 08:36] LABS: ALBUMIN 2.9 g/dl (3.4-5.0); BILIRUBIN,TOTAL 0.7 mg/dL (0.2-1); BLOOD UREA NITROGEN 9.6 mg/dL (7-18); CALCIUM 8.2 mg/dL (8.5-10.1); CREATININE 0.8 mg/dL (0.55-1.3); POTASSIUM 4.2 mmol/L (3.5-5.1); TOT PROT 6.1 g/dl (6.4-8.2)
[2019-10-14] MEDS: ACETAMINOPHEN 325 MG TABLET (FP) PO PRN (09:11)
[2019-10-14] MEDS: ASPIRIN 325 MG TABLET PO SCH (09:11)
[2019-10-14] MEDS: CLOPIDOGREL BISULFATE 75 MG TABLET (FP) PO SCH (09:11)
--- NOTE | 2019-10-14 09:11 | PN ---
Progress Note (short form) - Note Progress Note: NEUROSURGERY h/o anemia from fibroids and menometorrhagia, brain aneurysm (s/p endovascular treatment 08/2019) c/o 4 days of shortness of breath worse with activity. Since brain aneurysm tx c/o LE swelling and pain. In ER a week ago for LE problems and was Dx with cellulitis, and Rx'd Keflex and bactrim; R groin still painful P:; AF, VSS HEENT- NC/AT; Neck- supple; Cor- RRR; Lungs- CTA B; Abd- benign; Ext- mild R LE edema CN- intact; Motor- 5/5 without drift; Sensation- intact LT; DTR- 2+ B UE/LE LE doppler: R greater saphenous vein thrombosis, R foot dorsum cyst Head CT- L intracranial ICA stent/pipeline; no SAH; no HCP Stable neurologically Recent (08/2019) endovascular stenting of asymptomatic aneurysm at [facility] f/u with treating physician for her aneurysm Tx of superficial thrombophlebitis per medical team If any concerns for hypercoagulable state consider hematology input
--- NOTE | 2019-10-14 09:19 | DS ---
Physical Exam: SUBJECTIVE: Patient seen and examined at the bedside. She agrees to have her CBC repeated within 1 week. She reports that she has a vascular appointment this Saturday and will take all imaging done here to her appointments. OBJECTIVE: Patient is a 49 year old female with a significant past medical history of anemia 2/2 fibroids and menometorrhagia, brain aneurysm ( s/p clipping 08/2019) , presents to the ED with 4 days of shortness of breath. pt states that she notices this is worse with activity. she states that for five years she has been having abnormal menstrual cycles which have been worsening. she states that this last cycle has been occurring for over a month and is bleeding so much she has to change a pad several times over an hour. she also states that since her brain aneurysm clipping she has been having LE swelling and pain. pt was last at ER a week ago for LE problems and was Dx with cellulitis. She has been transfused a total of 3 units during her hospitalization. CBC is stable at 9.6/29.5. No further episodes of shortness of breath reported, respiratory pre and post shows no need for home oxygen. 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 She also has a vascular this Saturday. She had a recent stent placement for PVD. Discharge home. signs/symptoms of anemia discussed with her. Vital Signs Period Temp Pulse Resp BP Sys/Mae Pulse Ox Last 24 Hr 97.3 F-99.3 F 87-120 17-20 101-132/55-78 96-99 PHYSICAL EXAM GENERAL: The patient is awake, alert, and fully oriented, in no acute distress. HEAD: Normal with no signs of trauma. EYES: PERRL, extraocular movements intact, sclera anicteric, conjunctiva clear. No ptosis. ENT: Ears normal, nares patent, oropharynx clear without exudates NECK: Trachea midline, full range of motion, supple. LUNGS: Breath sounds equal, clear to auscultation bilaterally HEART: Regular rate and rhythm ABDOMEN: Soft, nontender, nondistended, normoactive bowel sounds EXTREMITIES: 2+ pulses, warm, well-perfused, no edema. NEUROLOGICAL: . Normal speech, gait not observed. PSYCH: Normal mood, normal affect. SKIN: smal area of abrasion on right outer white, cleansed with NS and dry dressing applied. small pinpoint area of open skin, non draining. vascular follow up this Saturday as an outpatient. LABS Laboratory Results - last 24 hr 10/12/19 10/13/19 10/14/19 15:37 16:15 07:00 WBC 7.2 8.7 RBC 3.14 L 3.53 L Hgb 8.3 L 9.6 L Hct 26.0 L D 29.5 L MCV 82.6 83.6 MCH 26.3 27.2 MCHC 31.8 L 32.5 RDW 17.5 H 17.5 H Plt Count 315 343 MPV 8.8 8.5 Absolute Neuts (auto) 6.4 Neutrophils % 73.4 Lymphocytes % 11.7 D Monocytes % 9.5 Eosinophils % 4.4 Basophils % 1.0 Nucleated RBC % 0 Sodium Potassium Chloride Carbon Dioxide Anion Gap BUN Creatinine Est GFR (CKD-EPI)AfAm Est GFR (CKD-EPI)NonAf Random Glucose Calcium Total Bilirubin AST ALT Alkaline Phosphatase Total Protein Albumin Blood Type AB POSITIVE Antibody Screen Negative Crossmatch See Detail 10/14/19 07:00 WBC RBC Hgb Hct MCV MCH MCHC RDW Plt Count MPV Absolute Neuts (auto) Neutrophils % Lymphocytes % Monocytes % Eosinophils % Basophils % Nucleated RBC % Sodium 140 Potassium 4.2 Chloride 107 Carbon Dioxide 25 Anion Gap 8 BUN 9.6 Creatinine 0.8 Est GFR (CKD-EPI)AfAm 98.93 Est GFR (CKD-EPI)NonAf 85.36 Random Glucose 89 Calcium 8.2 L Total Bilirubin 0.7 AST 19 ALT 35 Alkaline Phosphatase 126 H Total Protein 6.1 L Albumin 2.9 L Blood Type Antibody Screen Crossmatch HOSPITAL COURSE: Date of Admission:10/12/19 Date of Discharge: 10/14/19 Minutes to complete discharge: 45 Discharge Summary Problems reviewed: Yes Reason For Visit: SECONDARY ANEMIA Current Active Problems Greater saphenous vein embolism (Acute) Symptomatic anemia (Acute) Condition: Stable - Instructions Diet, Activity, Other Instructions: Mrs Meneses: You were admitted for symptomatic anemia and will be discharged home today. You have received a total of 3 units of blood since admission. Your hemaglobin is now stable, but it is highly recommended that you repeat your blood counts within 1 week to assure that they remain stable. Please note that I have called in iron supplements to your pharmacy. Thank you for allowing us to care for you. Referrals: ON STAFF,NOT [Non Staff, Medical] - Disposition: HOME - Home Medications Comprehensive Discharge Medication List: Ambulatory Orders Aspirin [ASA -] 325 mg PO DAILY 10/12/19 Clopidogrel Bisulfate [Plavix] 75 mg PO DAILY 10/12/19 Ferrous Sulfate [Feosol] 325 mg PO DAILY #120 tablet 10/14/19 Problem List - Problems (1) Acute blood loss anemia Assessment/Plan: Patient reports a chronic on going problem with fibroids/menometorrhagia. s/p 3 units of prbc, hmg/hct stable. 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 patient will take all imaging done here with her. seen by vascular team during hospital stay. Code(s): I82.819 - EMBOLISM AND THROMBOSIS OF SUPERFICIAL VN UNSP LOW EXTRM Qualifiers: Laterality: right Qualified Code(s): I82.811 - Embolism and thrombosis of superficial veins of right lower extremity (3) Symptomatic anemia Assessment/Plan: resolved, no further episodes of shortness of breath Code(s): D64.9 - ANEMIA, UNSPECIFIED (4) Dysfunctional uterine bleeding Assessment/Plan: resolved, only having to change her menstral pads twice yesterday. denies heavy bleeding. Code(s): N93.8 - OTHER SPECIFIED ABNORMAL UTERINE AND VAGINAL BLEEDING This patient is new to me today: No Emergency Visit: Yes ED Registration Date: 10/12/19 Care time: The patient presented to the Emergency Department on the above date and was hospitalized for further evaluation of their emergent condition. Critical Care patient: No - Discharge Referral Referred to [facility] Med P.C.: No
[2019-10-14 11:12] VITALS: BP 106/71; PULSE 107; TEMP 99.3
== END 2019-10-14 11:15 | disposition home or self-care (01) | DRG 663 ==
LOC: JER 14:53 → JERBED 17:37 → J7W 20:34
PROVIDERS: ADMIT Internal Medicine; ATTEND Nurse Practitioner Family
PROC: 30233N1 Transfusion of Nonautologous Red Blood Cells into Peripheral Vein, Percutaneous Approach (ICD-10-PCS; principal; 2019-10-13)
DX: D62 Acute posthemorrhagic anemia (principal); N93.8 Other specified abnormal uterine and vaginal bleeding; I73.9 Peripheral vascular disease, unspecified; I83.003 Varicose veins of unspecified lower extremity with ulcer of ankle; E66.9 Obesity, unspecified; E88.09 Other disorders of plasma-protein metabolism, not elsewhere classified; E46 Unspecified protein-calorie malnutrition; I82.811 Embolism and thrombosis of superficial veins of right lower extremity
CPT/HCPCS: 36415; 36430; 36511; 70450-TC; 71046-TC-FY; 80053; 83735; 84100; 84703; 85025; 85027; 85610; 85730; 86850; 86900; 86901; 86922; 93005; 93010; 93971-TC; 94761; 99284-25; P9038; P9058

== ENCOUNTER 2021-04-06 08:32 | Inpatient (IN) | payer OTHER ==
[2021-04-06] MEDS ORDERED: ACETAMINOPHEN 1000 MG/100 ML VIAL (NON FORMULARY) IVPB ONE (09:04)
[2021-04-06] MEDS ORDERED: ACETAMINOPHEN INJECTION 100 ML IVPB ONE (09:12)
[2021-04-06 09:42] LABS: BASO % 1.2 % (0-2.0); EOS % 4.1 % (0-4.5); HEMATOCRIT 40.2 % (32.4-45.2); HEMOGLOBIN 13.3 GM/dL (10.7-15.3); LYMPH % 23.6 % (8-40); MCH 27.9 pg (25.7-33.7); MCHC 33.1 g/dl (32.0-36.0); MEAN CELL VOLUME 84.3 fl (80-96); MEAN PLT VOLUME 8.4 fl (7.5-11.1); MONO % 8.9 % (3.8-10.2); NEUT % 62.2 % (42.8-82.8); PLATELET COUNT 302 10^3/uL (134-434); RBC 4.77 M/mm3 (3.60-5.2); WHITE BLOOD COUNT 4.7 K/mm3 (4.0-10.0)
[2021-04-06 10:04] LABS: CALCIUM 9.3 mg/dL (8.5-10.1)
[2021-04-06 10:05] LABS: ALBUMIN 4.1 g/dl (3.4-5.0); BLOOD UREA NITROGEN 15.6 mg/dL (7-18)
[2021-04-06 10:10] LABS: BILIRUBIN,TOTAL 0.5 mg/dL (0.2-1); TOT PROT 7.8 g/dl (6.4-8.2)
[2021-04-06] MEDS ORDERED: VANCOMYCIN 1 GM in D5W (PRE-DOCKED) 1,000 MG/250 ML IVPB ONE (10:50)
[2021-04-06] MEDS ORDERED: VANCOMYCIN 1 GRAM (PRE-DOCKED) 1,000 MG/250 ML BAG IVPB ONE (12:01)
[2021-04-06] MEDS ORDERED: ONDANSETRON 4 MG/2 ML VIAL IVPUSH PRN (13:37)
[2021-04-06] MEDS ORDERED: GABAPENTIN 100 MG CAPSULE ONE (13:47)
[2021-04-06] MEDS: GABAPENTIN 400 MG CAPSULE PO SCH ×2 (13:50→21:15)
[2021-04-06] MEDS ORDERED: DEXTROSE 5%-WATER - 50 ML IVPB ONE (15:10)
[2021-04-06] MEDS ORDERED: ceFAZolin SODIUM 1 GM VIAL ONE (15:10)
[2021-04-06] MEDS: CEFAZOLIN 1 GM in DEXTROSE 5%-WATER - 50 ML IVPB SCH ×2 (15:20→23:06)
[2021-04-06 15:38] VITALS: BMI 36.3
[2021-04-06] MEDS: ACETAMINOPHEN 325 MG TABLET (FP) PO PRN (16:28)
[2021-04-06] MEDS ORDERED: CEFAZOLIN 500 MG in DEXTROSE 5%-WATER - 50 ML IVPB SCH (18:00)
[2021-04-06 22:01] VITALS: TEMP 97.9
[2021-04-07] MEDS: ACETAMINOPHEN 325 MG TABLET (FP) PO PRN ×3 (01:05→12:25)
[2021-04-07] MEDS ORDERED: ceFAZolin SODIUM 1 GM VIAL ONE ×2 (01:58→09:02)
[2021-04-07] MEDS ORDERED: DEXTROSE 5%-WATER - 50 ML IVPB ONE ×2 (01:58→09:02)
[2021-04-07] MEDS: CEFAZOLIN 1 GM in DEXTROSE 5%-WATER - 50 ML IVPB SCH ×2 (02:11→09:15)
[2021-04-07] MEDS: GABAPENTIN 400 MG CAPSULE PO SCH (06:31)
[2021-04-07 06:57] VITALS: BP 121/82; PULSE 84
[2021-04-07 07:05] LABS: HEMATOCRIT 39.1 % (32.4-45.2); HEMOGLOBIN 12.5 GM/dL (10.7-15.3); MCH 27.4 pg (25.7-33.7); MEAN CELL VOLUME 85.6 fl (80-96); MEAN PLT VOLUME 8.7 fl (7.5-11.1); PLATELET COUNT 283 10^3/uL (134-434); RBC 4.57 M/mm3 (3.60-5.2); RDW 17.1 % (11.6-15.6); WHITE BLOOD COUNT 4.5 K/mm3 (4.0-10.0)
[2021-04-07 07:26] LABS: BLOOD UREA NITROGEN 18.5 mg/dL (7-18); CALCIUM 8.7 mg/dL (8.5-10.1)
[2021-04-07 07:30] LABS: CREATININE 0.8 mg/dL (0.55-1.3)
[2021-04-07] MEDS ORDERED: ENOXAPARIN NA (PORCINE) 40 MG/0.4 ML DISP.SYRIN SQ SCH (10:00)
[2021-04-08] MEDS ORDERED: BACITRACIN 15 GM TUBE TOPICAL OINTMENT TP SCH (10:00)
== END 2021-04-07 14:07 | disposition home or self-care (01) | DRG 197 ==
LOC: JER 08:32 → JERBED 10:49 → J8W 15:03
PROVIDERS: ADMIT Student in an Organized Health Care Education/Training Program; ATTEND Internal Medicine
DX: I83.013 Varicose veins of right lower extremity with ulcer of ankle (principal); L97.319 Non-pressure chronic ulcer of right ankle with unspecified severity; I73.9 Peripheral vascular disease, unspecified; E66.9 Obesity, unspecified; D25.9 Leiomyoma of uterus, unspecified; G62.9 Polyneuropathy, unspecified; N92.0 Excessive and frequent menstruation with regular cycle; D64.9 Anemia, unspecified; Z68.36 Body mass index [BMI] 36.0-36.9, adult
CPT/HCPCS: 36415; 73590-TC-RT-FY; 80048; 80053; 85025; 85027; 87040; 87070; 87186; 87205; 93971-TC; 97116-GP; 97161-GP; 99285-25; C9803; J0131; U0003; U0005

== ENCOUNTER 2021-10-11 17:30 | Observation (INO) | payer OTHER ==
[2021-10-11 19:31] LABS: EOS % 3.1 % (0-4.5); HEMATOCRIT 24.7 % (32.4-45.2); HEMOGLOBIN 7.7 GM/dL (10.7-15.3); LYMPH % 19.2 % (8-40); MEAN CELL VOLUME 80.4 fl (80-96); MEAN PLT VOLUME 8.5 fl (7.5-11.1); MONO % 7.7 % (3.8-10.2); PLATELET COUNT 409 10^3/uL (134-434); RBC 3.07 M/mm3 (3.60-5.2); RDW 18.9 % (11.6-15.6); WHITE BLOOD COUNT 8.3 K/mm3 (4.0-10.0)
[2021-10-11 19:33] LABS: INR 1.07 (0.83-1.09); PROTHROMBIN TIME (PATIENT) 12.5 SEC (9.7-13.0)
[2021-10-11 19:46] LABS: CALCIUM 9.3 mg/dL (8.5-10.1)
[2021-10-11 19:47] LABS: ALBUMIN 3.7 g/dl (3.4-5.0); BLOOD UREA NITROGEN 13.2 mg/dL (7-18)
[2021-10-11 19:50] LABS: CREATININE 0.9 mg/dL (0.55-1.3)
[2021-10-11 19:51] LABS: BILIRUBIN,TOTAL 0.2 mg/dL (0.2-1); TOT PROT 7.4 g/dl (6.4-8.2)
[2021-10-12 08:52] LABS: BASO % 0.8 % (0-2.0); HEMATOCRIT 27.1 % (32.4-45.2); HEMOGLOBIN 8.3 GM/dL (10.7-15.3); LYMPH % 22.5 % (8-40); MCH 24.7 pg (25.7-33.7); MCHC 30.6 g/dl (32.0-36.0); MEAN CELL VOLUME 80.6 fl (80-96); MEAN PLT VOLUME 8.7 fl (7.5-11.1); NEUT % 62.7 % (42.8-82.8); PLATELET COUNT 392 10^3/uL (134-434); RBC 3.36 M/mm3 (3.60-5.2); RDW 17.3 % (11.6-15.6)
[2021-10-12 08:53] LABS: EPI CELLS >36 /uL (0-25.1); HYALINE CASTS 3 /uL (0-3.1); URINE APPEARANCE CLOUDY; URINE BACTERIA 4016 /uL (0-1359); URINE BILIRUBIN NEGATIVE (NEGATIVE); URINE COLOR ORANGE; URINE GLUCOSE (UA) NEGATIVE (NEGATIVE); URINE KETONE NEGATIVE (NEGATIVE); URINE LEUK ESTERASE 1+ (NEGATIVE); URINE NITRITE NEGATIVE (NEGATIVE); URINE PROTEIN 2+ (NEGATIVE); URINE RBC 601 /uL (0-23.9); URINE UROBILINOGEN 0.2 mg/dL (0.2-1.0); URINE WBC 193 /uL (0-25.8)
[2021-10-12 09:20] LABS: IRON SERUM 27 ug/dL (50-175)
[2021-10-12 09:21] LABS: TOTAL IRON BINDING CAPACITY 367 ug/dL (250-450)
[2021-10-12 09:44] LABS: CALCIUM 8.6 mg/dL (8.5-10.1)
[2021-10-12 09:45] LABS: BLOOD UREA NITROGEN 13.3 mg/dL (7-18); MAGNESIUM 2.3 mg/dL (1.8-2.4)
[2021-10-12] MEDS ORDERED: ENOXAPARIN NA (PORCINE) 40 MG/0.4 ML DISP.SYRIN SQ SCH ×2 (10:00)
[2021-10-12] MEDS ORDERED: HEPARIN NA (PORCINE) 5,000 UNITS/ML 1ML VIAL IVPUSH ONE ×2 (11:48→12:41)
[2021-10-12] MEDS ORDERED: HEPARIN NA (PORCINE) 5,000 UNITS/ML 1ML VIAL IVPUSH PRN ×4 (12:41→13:03)
[2021-10-12] MEDS ORDERED: HEPARIN INFUSION - 25,000 UNITS/500 ML INFUS.BAG IVPB SCH (12:45)
[2021-10-12 12:52] LABS: HEMATOCRIT 28.7 % (32.4-45.2); HEMOGLOBIN 9.1 GM/dL (10.7-15.3); MCH 25.2 pg (25.7-33.7); MCHC 31.6 g/dl (32.0-36.0); MEAN CELL VOLUME 79.8 fl (80-96); MEAN PLT VOLUME 8.2 fl (7.5-11.1); PLATELET COUNT 380 10^3/uL (134-434); RDW 18.1 % (11.6-15.6); WHITE BLOOD COUNT 7.2 K/mm3 (4.0-10.0)
[2021-10-12] MEDS: HEPARIN INFUSION - 25,000 UNITS/500 ML INFUS.BAG IVPB SCH (13:14)
[2021-10-12 13:34] LABS: ANISOCYTOSIS 2+; MACROCYTOSIS 2+; OVALOCYTE 2+; PLATELET ESTIMATE NORMAL; TARGET CELLS 1+; TEAR DROP CELLS 1+
[2021-10-12] MEDS ORDERED: PANTOPRAZOLE 20 MG TABLET PO ONE (15:34)
[2021-10-12] MEDS: PANTOPRAZOLE 20 MG TABLET PO SCH (15:43)
[2021-10-13 03:05] LABS: INR 1.11 (0.83-1.09); PROTHROMBIN TIME (PATIENT) 12.8 SEC (9.7-13.0)
[2021-10-13 03:08] LABS: ACTIVATED PTT 63.5 SECONDS (25.2-36.5)
[2021-10-13 05:17] VITALS: BMI 34.9
[2021-10-13 07:55] LABS: HEMATOCRIT 26.3 % (32.4-45.2); HEMOGLOBIN 8.3 GM/dL (10.7-15.3); MCH 25.1 pg (25.7-33.7); MCHC 31.7 g/dl (32.0-36.0); MEAN CELL VOLUME 79.1 fl (80-96); MEAN PLT VOLUME 8.7 fl (7.5-11.1); PLATELET COUNT 328 10^3/uL (134-434); RBC 3.32 M/mm3 (3.60-5.2); RDW 18.2 % (11.6-15.6); WHITE BLOOD COUNT 7.1 K/mm3 (4.0-10.0)
[2021-10-13 08:35] LABS: CALCIUM 8.4 mg/dL (8.5-10.1)
[2021-10-13 08:36] LABS: ALBUMIN 3.2 g/dl (3.4-5.0); BLOOD UREA NITROGEN 12.6 mg/dL (7-18); MAGNESIUM 2.3 mg/dL (1.8-2.4)
[2021-10-13 08:39] LABS: CREATININE 0.9 mg/dL (0.55-1.3); PHOSPHOROUS 4.2 mg/dL (2.5-4.9)
[2021-10-13 08:40] LABS: BILIRUBIN,TOTAL 0.4 mg/dL (0.2-1); TOT PROT 6.3 g/dl (6.4-8.2)
[2021-10-13] MEDS: PANTOPRAZOLE 20 MG TABLET PO SCH (09:49)
[2021-10-13] MEDS: HEPARIN INFUSION - 25,000 UNITS/500 ML INFUS.BAG IVPB SCH ×2 (09:51→13:15)
[2021-10-13] MEDS: APIXABAN 5 MG TABLET PO SCH (22:18)
[2021-10-14 07:12] LABS: HEMATOCRIT 28.5 % (32.4-45.2); HEMOGLOBIN 8.7 GM/dL (10.7-15.3); MCH 24.4 pg (25.7-33.7); MCHC 30.6 g/dl (32.0-36.0); MEAN PLT VOLUME 8.1 fl (7.5-11.1); PLATELET COUNT 297 10^3/uL (134-434); RBC 3.57 M/mm3 (3.60-5.2); RDW 17.6 % (11.6-15.6); WHITE BLOOD COUNT 7.3 K/mm3 (4.0-10.0)
[2021-10-14 07:33] LABS: MAGNESIUM 2.3 mg/dL (1.8-2.4)
[2021-10-14 07:34] LABS: CALCIUM 8.6 mg/dL (8.5-10.1)
[2021-10-14 07:35] LABS: ALBUMIN 3.3 g/dl (3.4-5.0); BLOOD UREA NITROGEN 11.2 mg/dL (7-18)
[2021-10-14 07:38] LABS: CREATININE 0.8 mg/dL (0.55-1.3); PHOSPHOROUS 4.4 mg/dL (2.5-4.9); TOT PROT 6.6 g/dl (6.4-8.2)
[2021-10-14 07:39] LABS: BILIRUBIN,TOTAL 0.4 mg/dL (0.2-1)
[2021-10-14] MEDS: PANTOPRAZOLE 20 MG TABLET PO SCH (09:32)
[2021-10-14] MEDS: APIXABAN 5 MG TABLET PO SCH (09:32)
[2021-10-14 10:33] LABS: EPI CELLS 8 /uL (0-25.1); HYALINE CASTS 0 /uL (0-3.1); PH,URINE 5.5 (5.0-8.0); URINE APPEARANCE CLEAR; URINE BACTERIA 203 /uL (0-1359); URINE BILIRUBIN NEGATIVE (NEGATIVE); URINE COLOR YELLOW; URINE GLUCOSE (UA) NEGATIVE (NEGATIVE); URINE KETONE NEGATIVE (NEGATIVE); URINE LEUK ESTERASE NEGATIVE (NEGATIVE); URINE NITRITE NEGATIVE (NEGATIVE); URINE PROTEIN NEGATIVE (NEGATIVE); URINE RBC 6 /uL (0-23.9); URINE UROBILINOGEN 0.2 mg/dL (0.2-1.0); URINE WBC 5 /uL (0-25.8)
[2021-10-14 12:50] LABS: HEMATOCRIT 29.2 % (32.4-45.2); HEMOGLOBIN 9.1 GM/dL (10.7-15.3); MCH 24.7 pg (25.7-33.7); MCHC 31.1 g/dl (32.0-36.0); MEAN CELL VOLUME 79.5 fl (80-96); MEAN PLT VOLUME 7.9 fl (7.5-11.1); PLATELET COUNT 289 10^3/uL (134-434); RBC 3.68 M/mm3 (3.60-5.2); RDW 17.7 % (11.6-15.6); WHITE BLOOD COUNT 7.4 K/mm3 (4.0-10.0)
[2021-10-14] MEDS: RIVAROXABAN 15 MG TABLET PO SCH (21:10)
[2021-10-15 07:26] LABS: HEMOGLOBIN 8.8 GM/dL (10.7-15.3); MCH 24.9 pg (25.7-33.7); MCHC 31.6 g/dl (32.0-36.0); MEAN CELL VOLUME 78.8 fl (80-96); MEAN PLT VOLUME 7.6 fl (7.5-11.1); PLATELET COUNT 261 10^3/uL (134-434); RBC 3.56 M/mm3 (3.60-5.2); RDW 17.8 % (11.6-15.6); WHITE BLOOD COUNT 6.9 K/mm3 (4.0-10.0)
[2021-10-15 08:17] LABS: BLOOD UREA NITROGEN 15.3 mg/dL (7-18); CALCIUM 8.4 mg/dL (8.5-10.1)
[2021-10-15 08:18] LABS: ALBUMIN 3.2 g/dl (3.4-5.0); MAGNESIUM 2.3 mg/dL (1.8-2.4)
[2021-10-15 08:19] LABS: BILIRUBIN,TOTAL 0.3 mg/dL (0.2-1); TOT PROT 6.4 g/dl (6.4-8.2)
[2021-10-15 08:20] LABS: PHOSPHOROUS 4.3 mg/dL (2.5-4.9)
[2021-10-15] MEDS: RIVAROXABAN 15 MG TABLET PO SCH (09:23)
[2021-10-15] MEDS: PANTOPRAZOLE 20 MG TABLET PO SCH (09:23)
[2021-10-15 11:59] VITALS: BP 126/83; PULSE 108; TEMP 98.7
[2021-10-15] MEDS ORDERED: GABAPENTIN 400 MG CAPSULE PO SCH (14:00)
[2021-10-15] MEDS ORDERED: RIVAROXABAN 15 MG TABLET PO SCH (17:30)
[2021-10-16] MEDS ORDERED: TOPIRAMATE 25 MG PO SCH (10:00)
[2021-10-16] MEDS ORDERED: TOPIRAMATE 25 MG TABLET PO SCH (10:00)
[2021-10-16 13:07] LABS: PROTEIN S FREE 71 % (61-136)
[2021-10-16 14:08] LABS: DRVVT - 28.9 sec (0.0-47.0)
[2021-12-04 11:37] LABS: B2-GLYCOPROTEIN IGG <10
[2021-12-04 11:38] LABS: B2-GLYCOPROTEIN IGA <10; B2-GLYCOPROTEIN IGM <10
[2021-12-04 11:39] LABS: CARDIOLIPIN AB IGA <10
[2021-12-04 11:40] LABS: APTT 25.3
[2021-12-04 11:41] LABS: DRVVT CONFIRM SECONDS NOT INDICATED; HEXAGONAL PHOSPHOLIPID NEUTRAL 0
== END 2021-10-15 13:56 | disposition home or self-care (01) ==
LOC: JER 17:30 → JERBED 21:01 → J4W 10-13 04:10
PROVIDERS: ADMIT Internal Medicine; ATTEND Internal Medicine
PROC: 30233P1 Transfusion of Nonautologous Frozen Red Cells into Peripheral Vein, Percutaneous Approach (ICD-10-PCS; principal; 2021-10-11)
PROC: 3E033GC Introduction of Other Therapeutic Substance into Peripheral Vein, Percutaneous Approach (ICD-10-PCS; 2021-10-11)
PROC: 3E033GC Introduction of Other Therapeutic Substance into Peripheral Vein, Percutaneous Approach (ICD-10-PCS; 2021-10-11)
DX: I82.4Z2 Acute embolism and thrombosis of unspecified deep veins of left distal lower extremity (principal); D62 Acute posthemorrhagic anemia; D25.9 Leiomyoma of uterus, unspecified; G89.29 Other chronic pain; U07.1 COVID-19; R00.0 Tachycardia, unspecified; Z29.9 Encounter for prophylactic measures, unspecified; I26.99 Other pulmonary embolism without acute cor pulmonale; N93.8 Other specified abnormal uterine and vaginal bleeding; E66.9 Obesity, unspecified; Z68.35 Body mass index [BMI] 35.0-35.9, adult
CPT/HCPCS: 36415; 36430; 71275-TC; 76830-TC; 80048; 80053; 81003; 81240; 81241; 82728; 83540; 83550; 83735; 84100; 85025; 85027; 85045; 85302; 85303; 85305; 85306; 85379; 85384; 85597; 85610; 85613; 85730; 85732; 86146; 86147; 86850; 86900; 86901; 86922; 93005; 93010; 93306-TC; 93970-TC; 96365; 96375; 99285-25; C9803-CS; G0378; J1644; P9058; Q9967; U0003; U0005

== ENCOUNTER 2021-12-01 22:49 | Emergency (ER) | payer OTHER ==
[2021-12-01 22:57] VITALS: BP 121/79; PULSE 93; TEMP 97.8; BMI 33.6
== END 2021-12-02 00:19 | disposition home or self-care (01) ==
LOC: JER 22:49
DX: S50.11XA Contusion of right forearm, initial encounter (principal)
CPT/HCPCS: 73090-TC-RT-FY; 99284-25

== ENCOUNTER 2023-05-16 22:55 | Observation (INO) | payer OTHER ==
[2023-05-17 00:28] LABS: BASO % 0.7 % (0-2.0); EOS % 1.1 % (0-4.5); HEMATOCRIT 19.5 % (32.4-45.2); LYMPH % 22.8 % (8-40); MCH 29.4 pg (25.7-33.7); MCHC 33.5 g/dl (32.0-36.0); MEAN CELL VOLUME 87.6 fl (80-96); MEAN PLT VOLUME 9.1 fl (7.5-11.1); NEUT % 68.4 % (42.8-82.8); PLATELET COUNT 196 10^3/uL (134-434); RBC 2.22 M/mm3 (3.60-5.2); WHITE BLOOD COUNT 8.3 K/mm3 (4.0-10.0)
[2023-05-17 00:35] LABS: INR 1.24 (0.83-1.09); PROTHROMBIN TIME (PATIENT) 14.3 SEC (9.7-13.0)
[2023-05-17 00:37] LABS: ACTIVATED PTT 27.1 SECONDS (25.2-36.5)
[2023-05-17 00:41] LABS: POTASSIUM 4.2 mmol/L (3.5-5.1)
[2023-05-17 00:43] LABS: ALBUMIN 2.8 g/dl (3.4-5.0); BLOOD UREA NITROGEN 48.6 mg/dL (7-18); CALCIUM 8.4 mg/dL (8.5-10.1)
[2023-05-17 00:46] LABS: CREATININE 0.8 mg/dL (0.55-1.3); HEMOGLOBIN 6.5 GM/dL (10.7-15.3)
[2023-05-17 00:48] LABS: BILIRUBIN,TOTAL 0.2 mg/dL (0.2-1); TOT PROT 5.2 g/dl (6.4-8.2)
[2023-05-17] MEDS ORDERED: OCTREOTIDE ACETATE 50 MCG/1 ML - 1 ML VIAL IVPUSH ONE (02:37)
[2023-05-17] MEDS ORDERED: ONDANSETRON 4 MG/2 ML VIAL IVPB ONE (02:37)
[2023-05-17] MEDS ORDERED: CEFTRIAXONE 1 GM in DEXTROSE 5%-WATER - 100 ML IVPB ONE (02:37)
[2023-05-17] MEDS ORDERED: FAMOTIDINE 20 MG/50 ML IVPB 20 MG/50 ML MG IVPB ONE ×2 (02:39→02:47)
[2023-05-17] MEDS ORDERED: ONDANSETRON 4 MG/2 ML VIAL ONE (02:47)
[2023-05-17] MEDS ORDERED: CEFTRIAXONE 1 GM/50 ML BAG ONE (02:47)
[2023-05-17] MEDS ORDERED: OCTREOTIDE ACETATE 100 MCG/1 ML ONE (02:49)
[2023-05-17] MEDS ORDERED: LACTATED RINGERS SOLUTION 1,000 ML IV STA (08:19)
[2023-05-17 08:53] VITALS: BMI 37.2
[2023-05-17] MEDS ORDERED: PANTOPRAZOLE SODIUM 40 MG VIAL IVPUSH ONE (09:01)
[2023-05-17] MEDS ORDERED: PANTOPRAZOLE SODIUM 160 MG in SODIUM CHLORIDE 290 ML IVPB SCH (09:15)
[2023-05-17] MEDS ORDERED: PANTOPRAZOLE 40 MG TABLET PO SCH (10:00)
[2023-05-17 11:14] LABS: BASO % 0.6 % (0-2.0); EOS % 0.8 % (0-4.5); HEMATOCRIT 21.5 % (32.4-45.2); HEMOGLOBIN 7.1 GM/dL (10.7-15.3); LYMPH % 18.9 % (8-40); MCH 29.5 pg (25.7-33.7); MCHC 32.9 g/dl (32.0-36.0); MEAN CELL VOLUME 89.5 fl (80-96); MEAN PLT VOLUME 9.5 fl (7.5-11.1); MONO % 7.9 % (3.8-10.2); NEUT % 71.8 % (42.8-82.8); PLATELET COUNT 176 10^3/uL (134-434); RDW 13.7 % (11.6-15.6); WHITE BLOOD COUNT 9.4 K/mm3 (4.0-10.0)
[2023-05-17] MEDS ORDERED: EPINEPHrine 1:10,000 (P-F SYR) 1 MG/10 ML DISP.SYRIN ONE (11:31)
[2023-05-17 13:50] LABS: HIV INTERPRETATION NEGATIVE (NEGATIVE)
[2023-05-17] MEDS: LACTATED RINGERS SOLUTION 1,000 ML IV SCH (15:39)
[2023-05-17] MEDS: PANTOPRAZOLE 40 MG TABLET PO SCH (23:17)
[2023-05-17] MEDS ORDERED: ACETAMINOPHEN 1000 MG/100 ML BAG IVPB ONE (23:21)
[2023-05-18 08:30] LABS: BASO % 0.7 % (0-2.0); EOS % 3.7 % (0-4.5); HEMATOCRIT 18.9 % (32.4-45.2); LYMPH % 16.1 % (8-40); MCH 29.8 pg (25.7-33.7); MCHC 33.4 g/dl (32.0-36.0); MEAN CELL VOLUME 89.4 fl (80-96); MEAN PLT VOLUME 9.3 fl (7.5-11.1); MONO % 6.5 % (3.8-10.2); PLATELET COUNT 163 10^3/uL (134-434); RBC 2.11 M/mm3 (3.60-5.2); RDW 14.1 % (11.6-15.6); WHITE BLOOD COUNT 6.5 K/mm3 (4.0-10.0)
[2023-05-18 08:41] LABS: HEMOGLOBIN 6.3 GM/dL (10.7-15.3)
[2023-05-18 09:46] LABS: POTASSIUM 3.7 mmol/L (3.5-5.1)
[2023-05-18 09:58] LABS: ALBUMIN 2.8 g/dl (3.4-5.0); CALCIUM 7.8 mg/dL (8.5-10.1)
[2023-05-18 09:59] LABS: BILIRUBIN,TOTAL 0.2 mg/dL (0.2-1); TOT PROT 4.9 g/dl (6.4-8.2)
[2023-05-18 10:01] LABS: CREATININE 0.7 mg/dL (0.55-1.3)
[2023-05-18 10:06] LABS: BLOOD UREA NITROGEN 11.3 mg/dL (7-18)
[2023-05-18] MEDS: LACTATED RINGERS SOLUTION 1,000 ML IV SCH (10:47)
[2023-05-18] MEDS: PANTOPRAZOLE 40 MG TABLET PO SCH ×2 (10:47→22:26)
[2023-05-18] MEDS ORDERED: RIVAROXABAN 20 MG TABLET PO SCH (22:00)
[2023-05-19 01:59] LABS: HEMATOCRIT 28.7 % (32.4-45.2); HEMOGLOBIN 9.8 GM/dL (10.7-15.3); MCH 29.7 pg (25.7-33.7); MCHC 34.2 g/dl (32.0-36.0); MEAN CELL VOLUME 86.9 fl (80-96); MEAN PLT VOLUME 9.3 fl (7.5-11.1); PLATELET COUNT 194 10^3/uL (134-434); RDW 14.2 % (11.6-15.6); WHITE BLOOD COUNT 9.5 K/mm3 (4.0-10.0)
[2023-05-19 02:08] LABS: INR 1.1 (0.83-1.09); PROTHROMBIN TIME (PATIENT) 12.7 SEC (9.7-13.0)
[2023-05-19 02:19] LABS: POTASSIUM 3.6 mmol/L (3.5-5.1)
[2023-05-19 02:22] LABS: CALCIUM 8.5 mg/dL (8.5-10.1)
[2023-05-19 02:23] LABS: BLOOD UREA NITROGEN 7.8 mg/dL (7-18)
[2023-05-19 02:26] LABS: URINE APPEARANCE CLEAR; URINE COLOR YELLOW; URINE GLUCOSE (UA) NEGATIVE (NEGATIVE)
[2023-05-19 02:26] LABS: CREATININE 0.8 mg/dL (0.55-1.3)
[2023-05-19 02:27] LABS: TOT PROT 6.3 g/dl (6.4-8.2)
[2023-05-19 02:27] LABS: EPI CELLS 15 /uL (0-25.1); HYALINE CASTS 2 /uL (0-3.1); URINE BACTERIA 14 /uL (0-1359); URINE BILIRUBIN NEGATIVE (NEGATIVE); URINE KETONE NEGATIVE (NEGATIVE); URINE LEUK ESTERASE NEGATIVE (NEGATIVE); URINE NITRITE NEGATIVE (NEGATIVE); URINE PROTEIN NEGATIVE (NEGATIVE); URINE RBC 12 /uL (0-23.9); URINE WBC 13 /uL (0-25.8)
[2023-05-19 02:28] LABS: BILIRUBIN,TOTAL 0.8 mg/dL (0.2-1)
[2023-05-19 02:32] LABS: ALBUMIN 3.4 g/dl (3.4-5.0)
[2023-05-19 09:22] LABS: BASO % 0.9 % (0-2.0); EOS % 4.7 % (0-4.5); HEMATOCRIT 27.3 % (32.4-45.2); HEMOGLOBIN 9.3 GM/dL (10.7-15.3); LYMPH % 20.8 % (8-40); MCH 29.8 pg (25.7-33.7); MCHC 33.9 g/dl (32.0-36.0); MEAN CELL VOLUME 87.8 fl (80-96); MEAN PLT VOLUME 9.1 fl (7.5-11.1); MONO % 7.9 % (3.8-10.2); NEUT % 65.7 % (42.8-82.8); PLATELET COUNT 200 10^3/uL (134-434); RBC 3.11 M/mm3 (3.60-5.2); RDW 14.7 % (11.6-15.6); WHITE BLOOD COUNT 7.6 K/mm3 (4.0-10.0)
[2023-05-19] MEDS: PANTOPRAZOLE 40 MG TABLET PO SCH (09:37)
[2023-05-19 09:40] LABS: POTASSIUM 3.5 mmol/L (3.5-5.1)
[2023-05-19 09:47] LABS: CALCIUM 8.2 mg/dL (8.5-10.1)
[2023-05-19 09:48] LABS: ALBUMIN 3.2 g/dl (3.4-5.0); BLOOD UREA NITROGEN 6.6 mg/dL (7-18); MAGNESIUM 2.2 mg/dL (1.8-2.4)
[2023-05-19 09:50] LABS: BILIRUBIN,TOTAL 0.7 mg/dL (0.2-1); TOT PROT 5.6 g/dl (6.4-8.2)
[2023-05-19 09:51] LABS: CREATININE 0.8 mg/dL (0.55-1.3)
[2023-05-19] MEDS ORDERED: POTASSIUM CHLORIDE TABS 20 MEQ TABLET.ER (FP) PO ONE (11:00)
[2023-05-19 11:29] VITALS: RESP 20
[2023-05-19 18:31] VITALS: BP 110/68; PULSE 73; TEMP 98.1
[2023-05-19] MEDS ORDERED: RIVAROXABAN 20 MG TABLET PO SCH (22:00)
== END 2023-05-19 19:16 | disposition home or self-care (01) ==
LOC: JER 22:55 → JERBED 05-17 05:45 → J8W 05-17 08:07
PROVIDERS: ADMIT Internal Medicine; ATTEND Nurse Practitioner Acute Care
PROC: 3E033NZ Introduction of Analgesics, Hypnotics, Sedatives into Peripheral Vein, Percutaneous Approach (ICD-10-PCS; 2023-05-17)
PROC: 3E03329 Introduction of Other Anti-infective into Peripheral Vein, Percutaneous Approach (ICD-10-PCS; 2023-05-17)
PROC: 3E033GC Introduction of Other Therapeutic Substance into Peripheral Vein, Percutaneous Approach (ICD-10-PCS; 2023-05-17)
PROC: 0W3P8ZZ Control Bleeding in Gastrointestinal Tract, Via Natural or Artificial Opening Endoscopic (ICD-10-PCS; principal; 2023-05-17 11:15)
DX: K92.1 Melena (principal); N92.0 Excessive and frequent menstruation with regular cycle; I73.9 Peripheral vascular disease, unspecified; R55 Syncope and collapse; Z29.8 Encounter for other specified prophylactic measures; D64.9 Anemia, unspecified; K92.2 Gastrointestinal hemorrhage, unspecified; I26.99 Other pulmonary embolism without acute cor pulmonale
CPT/HCPCS: 36415; 36430; 70140-TC-FY; 70200-TC-FY; 70450-TC; 71045-TC-FY; 71275-TC; 72125-TC; 72170-TC-FY; 73521-TC-FY; 74177-TC; 80053; 81003; 82272; 82962; 83735; 84100; 84484; 85025; 85027; 85610; 85730; 86078; 86803; 86850; 86880; 86900; 86901; 86922; 87040; 87338; 87340; 87389; 93005; 93010; 93971-TC; 96361; 96365; 96368; 96372; 96374; 96375; 99285-25; G0378; P9058; Q9967

== ENCOUNTER 2024-02-25 03:57 | Day surgery (SDC) | payer OTHER ==
[2024-02-19 15:50] VITALS: BMI 36.8
[2024-02-25] MEDS ORDERED: LIDOCAINE HCL/PF 1% SDV 5ML VIAL ONE (07:22)
[2024-02-25] MEDS ORDERED: BUPIVACAINE HCL/PF 0.75% 10 ML VIAL ONE (07:22)
[2024-02-25] MEDS: LIDOCAINE HCL 1% PRESERVATIVE FREE - 30ML VIAL IJ ONE (09:59)
[2024-02-25] MEDS: BUPIVACAINE HCL/PF 0.75% 10 ML VIAL NR ONE (10:00)
[2024-02-25 10:22] VITALS: BP 136/70; PULSE 73; RESP 16; TEMP 98.4
[2024-02-25] MEDS ORDERED: ACETAMINOPHEN 500 MG TABLET (FP) PO PRN (13:58)
== END 2024-02-25 10:45 | disposition home or self-care (01) ==
LOC: JASU-SURG 03:57
PROVIDERS: ATTEND Pain Medicine Pain Medicine
PROC: 3E0T33Z Introduction of Anti-inflammatory into Peripheral Nerves and Plexi, Percutaneous Approach (ICD-10-PCS; 2024-02-25)
PROC: 3E0T3BZ Introduction of Anesthetic Agent into Peripheral Nerves and Plexi, Percutaneous Approach (ICD-10-PCS; principal; 2024-02-25 09:15)
DX: M47.816 Spondylosis without myelopathy or radiculopathy, lumbar region (principal)
CPT/HCPCS: 76000-TC-FY

== ENCOUNTER 2024-04-23 04:04 | Day surgery (SDC) | payer OTHER ==
[2024-04-20 14:49] VITALS: BMI 36.8
[2024-04-23] MEDS ORDERED: LIDOCAINE HCL/PF 1% SDV 5ML VIAL ONE (07:30)
[2024-04-23] MEDS ORDERED: BUPIVACAINE HCL/PF 0.75% 10 ML VIAL ONE (07:30)
[2024-04-23] MEDS: LIDOCAINE HCL 1% PRESERVATIVE FREE - 30ML VIAL IJ ONE (10:26)
[2024-04-23] MEDS: BUPIVACAINE HCL/PF 0.75% 10 ML VIAL NR ONE (10:26)
[2024-04-23 10:53] VITALS: BP 129/78; PULSE 70; RESP 16; TEMP 97.8
[2024-04-23] MEDS ORDERED: ACETAMINOPHEN 500 MG TABLET (FP) PO PRN (15:46)
== END 2024-04-23 11:11 | disposition home or self-care (01) ==
LOC: JASU-SURG 04:04
PROVIDERS: ATTEND Pain Medicine Pain Medicine
PROC: 3E0T33Z Introduction of Anti-inflammatory into Peripheral Nerves and Plexi, Percutaneous Approach (ICD-10-PCS; 2024-04-23)
PROC: 3E0T3BZ Introduction of Anesthetic Agent into Peripheral Nerves and Plexi, Percutaneous Approach (ICD-10-PCS; principal; 2024-04-23 10:00)
DX: M47.816 Spondylosis without myelopathy or radiculopathy, lumbar region (principal)
CPT/HCPCS: 76000-TC-FY

== ENCOUNTER 2024-06-18 04:38 | Day surgery (SDC) | payer OTHER ==
[2024-06-15 10:15] VITALS: BMI 36.7
[2024-06-18] MEDS ORDERED: BUPIVACAINE HCL/PF 0.75% 10 ML VIAL ONE (07:20)
[2024-06-18] MEDS ORDERED: LIDOCAINE HCL/PF 1% SDV 5ML VIAL ONE (07:20)
[2024-06-18] MEDS ORDERED: DEXAMETHASONE SOD PHOSPHATE 10 MG/1 ML VIAL ONE (07:20)
[2024-06-18] MEDS ORDERED: LIDOCAINE HCL/PF 2% SDV 5ML VIAL ONE (07:20)
[2024-06-18] MEDS: LIDOCAINE HCL 1% PRESERVATIVE FREE - 30ML VIAL IJ ONE (08:36)
[2024-06-18] MEDS: LIDOCAINE HCL/PF 2% SDV 5ML VIAL INF ONE ×2 (08:46)
[2024-06-18] MEDS: BUPIVACAINE HCL/PF 0.75% 10 ML VIAL NR ONE ×2 (08:55)
[2024-06-18] MEDS: DEXAMETHASONE SOD PHOSPHATE 10 MG/1 ML VIAL IM ONE ×2 (08:55)
[2024-06-18 09:23] VITALS: BP 128/77; PULSE 68; RESP 16; TEMP 97.8
[2024-06-18] MEDS ORDERED: ACETAMINOPHEN 500 MG TABLET (FP) PO PRN (12:48)
== END 2024-06-18 10:06 | disposition home or self-care (01) ==
LOC: JASU-SURG 04:38
PROVIDERS: ATTEND Pain Medicine Pain Medicine
PROC: 015B3ZZ Destruction of Lumbar Nerve, Percutaneous Approach (ICD-10-PCS; principal; 2024-06-18 08:15)
DX: M47.816 Spondylosis without myelopathy or radiculopathy, lumbar region (principal)
CPT/HCPCS: 76000-TC-FY; J1100

== ENCOUNTER 2024-06-26 21:38 | Emergency (ER) | payer OTHER ==
[2024-06-26 21:43] VITALS: BP 169/93; TEMP 97.8; BMI 36.6
[2024-06-26 21:51] VITALS: PULSE 80; RESP 18
[2024-06-26] MEDS: ACETAMINOPHEN 325 MG TABLET (FP) PO ONE (23:35)
[2024-06-27] MEDS ORDERED: IBUPROFEN 400 MG TABLET (FP) PO ONE (00:05)
[2024-06-27] MEDS: IBUPROFEN 600 MG TABLET (FP) PO ONE (00:08)
== END 2024-06-27 00:09 | disposition home or self-care (01) ==
LOC: JERFT 21:38
DX: M25.462 Effusion, left knee (principal); M71.22 Synovial cyst of popliteal space [Baker], left knee; M25.562 Pain in left knee; M79.89 Other specified soft tissue disorders
CPT/HCPCS: 73562-TC-LT-FY; 73562-TC-RT-FY; 93970-TC; 99284-25

== ENCOUNTER 2024-07-30 04:09 | Day surgery (SDC) | payer OTHER ==
[2024-07-29 10:44] VITALS: BMI 35.9
[2024-07-30] MEDS ORDERED: DEXAMETHASONE SOD PHOSPHATE 10 MG/1 ML VIAL ONE (07:26)
[2024-07-30] MEDS ORDERED: LIDOCAINE HCL/PF 1% SDV 5ML VIAL ONE (07:26)
[2024-07-30] MEDS ORDERED: BUPIVACAINE HCL/PF 0.75% 10 ML VIAL ONE (07:26)
[2024-07-30] MEDS ORDERED: LIDOCAINE HCL/PF 2% SDV 5ML VIAL ONE (07:26)
[2024-07-30] MEDS ORDERED: ACETAMINOPHEN 500 MG TABLET (FP) PO PRN (09:25)
[2024-07-30] MEDS: LIDOCAINE HCL 1% PRESERVATIVE FREE - 30ML VIAL IJ ONE ×2 (11:43)
[2024-07-30] MEDS: LIDOCAINE HCL/PF 2% SDV 5ML VIAL INF ONE ×2 (11:55)
[2024-07-30] MEDS: BUPIVACAINE HCL/PF 0.75% 10 ML VIAL NR ONE ×2 (12:03)
[2024-07-30] MEDS: DEXAMETHASONE SOD PHOSPHATE 10 MG/1 ML VIAL IM ONE ×2 (12:03)
[2024-07-30 13:57] VITALS: RESP 18; TEMP 97.6
[2024-07-30 13:59] VITALS: BP 133/89; PULSE 75
== END 2024-07-30 12:38 | disposition home or self-care (01) ==
LOC: JASU-SURG 04:09
PROVIDERS: ATTEND Pain Medicine Pain Medicine
PROC: 015B3ZZ Destruction of Lumbar Nerve, Percutaneous Approach (ICD-10-PCS; principal; 2024-07-30 10:45)
DX: M47.816 Spondylosis without myelopathy or radiculopathy, lumbar region (principal)
CPT/HCPCS: 76000-TC-FY; J1100